=== PATIENT | female | born 1950 | race Caucasian/White ===

== ENCOUNTER 2019-05-20 19:50 | Inpatient (IN) | payer MEDICAID, MEDICARE ==
[~2019-05-20] VITALS: Ht 177.8 cm; Wt 88.9 kg
--- NOTE | 2019-05-20 19:52 | NUR ---
Patient to ER bed 07 to gown for evaluation. Side rails up.
--- NOTE | 2019-05-20 19:55 | NUR ---
Pt brought by ambulance, Alert x 2, pt presents to ER for PEG replacement, pt denies pain, VSS, respirations even and unlabored, cap refill <3.
--- NOTE | 2019-05-20 20:00 | NUR ---
Dr Ren at bedside examining patient
[2019-05-20 20:04] VITALS: BP_SYST 115
[2019-05-20] MEDS ORDERED: NACL 0.9% 1,000 ML IV ONE (20:15)
[2019-05-20 20:30] LABS: BASOPHILS # (AUTO) 0.1 K/uL (0.0-0.2); BASOPHILS % (AUTO) 0.6 % (0.0-2.0); EOSINOPHILS # (AUTO) 0.2 K/uL (0.0-0.4); HEMATOCRIT 25.8 % (36-48); HEMOGLOBIN 8.5 g/dL (12.0-16.0); LYMPHOCYTES % (AUTO) 20.8 % (20.5-51.5); MEAN CORPUSCULAR HEMOGLOBIN 27 pg (27-31); MEAN CORPUSCULAR HGB CONC 33 % (32-36); MEAN CORPUSCULAR VOLUME 83 fL (79.0-98.0); MONOCYTES # (AUTO) 0.6 K/uL (0.0-1.0); MONOCYTES % (AUTO) 6.1 % (1.7-9.3); NEUTROPHILS # (AUTO) 6.7 K/uL (1.8-7.7); NEUTROPHILS % (AUTO) 70.5 % (40.0-70.0); PLATELET COUNT (AUTO) 507 K/uL (130-430); WHITE BLOOD COUNT (AUTO) 9.5 K/uL (4.8-10.8)
[2019-05-20 20:35] LABS: CALCIUM 9.7 mg/dL (8.4-11.0); CREATININE 0.73 mg/dL (0.55-1.30); POTASSIUM 4.5 mmol/L (3.5-5.1)
[2019-05-20 20:40] LABS: ALBUMIN 2.1 g/dL (3.4-4.8); TOTAL BILIRUBIN 0.5 mg/dL (0.0-1.0)
[2019-05-20] MEDS ORDERED: ONDANSETRON HCL 4 MG/2 ML VIAL IVP PRN (20:45)
[2019-05-20] MEDS ORDERED: ACETAMINOPHEN 325 MG TABLET PO PRN (20:45)
[2019-05-20] MEDS ORDERED: TYLL650 GT (20:54)
[2019-05-20] MEDS ORDERED: ASCO500T20 PO (20:54)
[2019-05-20] MEDS ORDERED: ZINC220T4 GT (20:54)
[2019-05-20] MEDS ORDERED: MULT-976 GT (20:54)
[2019-05-20] MEDS ORDERED: DOCU-144 GT (20:54)
[2019-05-20] MEDS ORDERED: GLYC1TAB9 GT (20:54)
[2019-05-20] MEDS ORDERED: MIDO5TAB GT (20:54)
--- NOTE | 2019-05-20 20:54 | NUR ---
Medication reconciliation completed with information provided by patient . Any prior medication reconciliation on file was reviewed and corrected.
[2019-05-20 21:03] LABS: INR 1.1 (0.8-1.2); PROTHROMBIN TIME 10.7 SECS (9.5-12.5)
[2019-05-20 21:14] LABS: PHOSPHORUS 3.8 mg/dL (2.7-4.5); THYROID STIMULATING HORMONE 2.63 uIu/mL (0.36-3.74)
[2019-05-20 21:17] LABS: CHOLESTEROL 160 mg/dL (<200); HDL CHOLESTEROL 35 mg/dL (>55); LDL CHOLESTEROL 114 mg/dL (<100); TRIGLYCERIDES 75 mg/dL (30-150)
--- NOTE | 2019-05-20 22:07 | NUR ---
Patient will be admitted to care of Dr Shaw . Admitted to medsurg unit. Will go to room 123A . . Complete and up to date summary report printed. SBAR report to be given at bedside with opportunity for questions.
--- NOTE | 2019-05-20 22:07 | NUR ---
Note joseph in EDM - 05/20/19 at 2209 by [email or web address] Patient will be admitted to care of Dr Lugo . Admitted to medsur unit. Will go to room 123A . . Complete and up to date summary report printed. SBAR report to be given at bedside with opportunity for questions.
--- NOTE | 2019-05-20 22:28 | NUR ---
ADMIT FEMALE Patient awake alert verbally indicative , malfunction GT T BAR to Trach 02 3 LPM 02 sat 95 % chest movement shallow also symmetrical no use of accessory muscles procedures explained .
[2019-05-21] VITALS (7 sets, daily range): BP systolic 94–138
--- NOTE | 2019-05-21 00:10 | NUR ---
PHOTO PICTURE TAKEN OF SKIN TEAR OLD DRY SCAB ON RIGHT F/A .
[2019-05-21] MEDS: DOCUSATE SODIUM 100 MG CAPSULE PO SCH ×3 (00:40→21:00)
[2019-05-21] MEDS: NACL 0.9% 1,000 ML IV SCH ×3 (00:41→19:00)
[2019-05-21] MEDS: HEPARIN SODIUM,PORCINE 5000 UNITS/ML VIAL SUBCUT SCH ×3 (00:41→21:00)
--- NOTE | 2019-05-21 02:37 | NUR ---
WOUND CARE SACRAL WOUND BED 80 % PINK 20 % GUALLPA ALCIRA WOUND ERYTHEMA SCANT DRAINAGE FOUL ODER 7.0 CM X 6.0 CM X 3.5 CM .
--- NOTE | 2019-05-21 02:40 | NUR ---
PHOTO PICTURE TAKEN OF LARGE SACRAL WOUND & PUT IN MEDICAL Record / .
--- NOTE | 2019-05-21 03:35 | NUR ---
MRSA SCREEN OF NARES COLLECTED & SENT TO LAB .
[2019-05-21 06:33] LABS: CALCIUM 9.7 mg/dL (8.4-11.0); CREATININE 0.79 mg/dL (0.55-1.30); POTASSIUM 4.5 mmol/L (3.5-5.1)
--- NOTE | 2019-05-21 06:38 | NUR ---
Patient for GI consult per GI team d/t malfunction GT , DR ZAYRA BLAIR .
[2019-05-21 06:49] LABS: BASOPHILS % (AUTO) 0.4 % (0.0-2.0); EOSINOPHILS # (AUTO) 0.2 K/uL (0.0-0.4); EOSINOPHILS % (AUTO) 2.9 % (0.0-4.0); HEMATOCRIT 24.6 % (36-48); LYMPHOCYTES # (AUTO) 1.8 K/uL (1.0-5.5); LYMPHOCYTES % (AUTO) 24.2 % (20.5-51.5); MEAN CORPUSCULAR HEMOGLOBIN 28 pg (27-31); MEAN CORPUSCULAR HGB CONC 33 % (32-36); MEAN CORPUSCULAR VOLUME 84 fL (79.0-98.0); MONOCYTES # (AUTO) 0.5 K/uL (0.0-1.0); MONOCYTES % (AUTO) 6.6 % (1.7-9.3); NEUTROPHILS % (AUTO) 65.9 % (40.0-70.0); PLATELET COUNT (AUTO) 459 K/uL (130-430); RED BLOOD CELL COUNT(AUTO) 2.92 MIL/uL (4.2-6.2); RED CELL DISTRIBUTION WIDTH 18.1 % (9.0-15.0); WHITE BLOOD COUNT (AUTO) 7.5 K/uL (4.8-10.8)
--- NOTE | 2019-05-21 07:25 | NUR ---
CONSULTATION PAGED/CALLED Reason for Consultation: [] GT MALFUNCTION Person Who was Notified: [] SHRUTHI Consulting Physician: [] DR BROWN, DR IVERSON ROLL FORM OPERATOR Derrick Boat Leverman Specialty: [] GI Ordering Physician: [] DR VALDOVINOS
--- NOTE | 2019-05-21 08:00 | NUR ---
received awake and in no c/o discomfort.vss resp even and unlabored remains npo for gtube not working iv infusing at 100 hr.trach intact and 02 at 3lnc.continue to monitor for changes
--- NOTE | 2019-05-21 11:15 | NUR ---
CONSULTATION PAGED/CALLED Reason for Consultation: [] SACRAL ULCER DEBRIDEMENT Person Who was Notified: [] JANA Consulting Physician: [] DR Lisa YU Caramel Candy Maker Specialty: [] GEN SURGEON Ordering Physician: [] DR Kaci VALDOVINOS
--- NOTE | 2019-05-21 12:00 | NUR ---
resting and no c/o discomfort vss resp even and unlabored iv infusing at 100 hr repositioned in bed q2h.remains npo continue to monitor call ruiz in place
--- NOTE | 2019-05-21 17:48 | NUR ---
UNABLE TO CONTACT DENIAL RESOLUTION SPECIALIST FOR CONSENT UNABLE TO REACH THE EMERGENCY CONTACT VANE ALATORRE( DENIAL RESOLUTION SPECIALIST) TELEPHONE NUMBER WAS NOT RINGING, TRIED 5X. (TEL # [phone])
--- NOTE | 2019-05-21 18:08 | NUR ---
will endorse to retail shift supervisor unable to reach number for consent so they can try again or call dr.pt in no distress remains npo and iv infusing at 100 hr.turned and repositioned wound to sacral drsg cdi.call ruiz in place
--- NOTE | 2019-05-21 18:58 | NUR ---
REPORT TO LOAN EXAMINER TO BE GIVEN
--- NOTE | 2019-05-21 19:15 | NUR ---
change of shift.pt.presents quiescent affect;calm,somnolent.pt.presents t-bar;o2 administered@3l/min.pt.presents iv access :location;rt.hand.iv fluids infusing.pt.presents diet status:npo.pt.presents g-tube;malfunctioning.pt possible peg placement; 05/22/19. per .pt.presents wound; sacrum.pt.possible surgery pt:i&d per :05/22/19.call light/telephone w/in reach of the pt.
--- NOTE | 2019-05-21 20:00 | NUR ---
pt.assessed.v/s assessed.values w/in normal limits.no c/o pain,nausea.pt.assessed for cleanliness.pt.repositioned.iv access intact;patent iv fluids infusing.general status stable.respiratory status stable;unlabored:02-sat%=94%.t-bar intact;patent. call light/telephone placed w/in reach of the pt.
--- NOTE | 2019-05-21 21:00 | NUR ---
2100p medications held:pt presents npo diet status.i have held the administration heparin;5ku sq.pt possible surgery pt:05/22/19.
--- NOTE | 2019-05-21 22:00 | NUR ---
pt.assessed.pt.presents quiescent affect;calm,somnolent.pt.assessed for cleanliness.pt.repositioned.iv acces intact;patent;iv fluids infusing. general status stable.respiratory status stable;unlabored.call light/telephone placed w/in reach of the pt.
--- NOTE | 2019-05-22 | NUR ---
pt.assessed.v/s assessed;values w/in normal limits.no c/o pain,nausea.pt.assessed for cleanliness.pt repositioned.iv access intact.patent iv fluids infusing.general status stable.respiratory status stable;unlabored.o2-sat%=94%.call light/telephone placed w/in reach of the pt.
[2019-05-22] MEDS ORDERED: cefTRIAXone 1 GM IVPB PREMIX 50 ML IV SCH (01:00)
[2019-05-22] MEDS: D5NS 1,000 ML IV SCH ×3 (01:45→22:40)
--- NOTE | 2019-05-22 02:00 | NUR ---
pt.assessed.pt.assessed for cleanliness.pt.repositioned.pt.presents quiescent affect;calm,somnolent.no c/o pain,nausea. i have administered the iv fluids bag.i have administered the initial rocephin;abx;ivpb.iv access intact;patent.genera status stable.respiratory status stable;unlabored;02-sat%=94%.call light/telephone placed w/in reach of the pt.
[2019-05-22] MEDS ORDERED: cefTRIAXone 1 GM IVPB PREMIX 50 ML IV ONE (02:09)
--- NOTE | 2019-05-22 04:00 | NUR ---
pt.assessed.pt.assessed for cleanliness.pt.cleaned.pt.repositioned.general status stable.respiratory status stable;unlabored. iv acces intact;patent;iv fluids infusing.call light/telephone placed w/in reach of the pt.
[2019-05-22 05:58] VITALS: BP_SYST 104
--- NOTE | 2019-05-22 06:30 | NUR ---
pt.assessed.pt.assessed for cleanliness.pt.repositioned.iv access intact;patent;iv fluids infusing.i have administered the initial dose;vancomycin;abx;ivpb.call light/telephone placed w/in reach of the pt.
[2019-05-22 06:49] LABS: BASOPHILS % (AUTO) 0.5 % (0.0-2.0); EOSINOPHILS # (AUTO) 0.1 K/uL (0.0-0.4); LYMPHOCYTES # (AUTO) 1.7 K/uL (1.0-5.5); LYMPHOCYTES % (AUTO) 23.8 % (20.5-51.5); MEAN CORPUSCULAR HEMOGLOBIN 28 pg (27-31); MEAN CORPUSCULAR HGB CONC 32 % (32-36); MEAN CORPUSCULAR VOLUME 85 fL (79.0-98.0); MONOCYTES # (AUTO) 0.5 K/uL (0.0-1.0); MONOCYTES % (AUTO) 7.1 % (1.7-9.3); NEUTROPHILS # (AUTO) 4.8 K/uL (1.8-7.7); NEUTROPHILS % (AUTO) 66.6 % (40.0-70.0); PLATELET COUNT (AUTO) 445 K/uL (130-430); RED BLOOD CELL COUNT(AUTO) 2.72 MIL/uL (4.2-6.2); RED CELL DISTRIBUTION WIDTH 18.2 % (9.0-15.0); WHITE BLOOD COUNT (AUTO) 7.2 K/uL (4.8-10.8)
[2019-05-22 06:53] LABS: CALCIUM 9.2 mg/dL (8.4-11.0); CREATININE 0.76 mg/dL (0.55-1.30); POTASSIUM 3.9 mmol/L (3.5-5.1)
--- NOTE | 2019-05-22 06:57 | NUR ---
Nutrition Update Torey Scale 12 noted. Pt admitted for Displaced GT Diet: no diet order BMI: 28.2 kg/m2 RD to follow per nutrition care standards.
[2019-05-22] MEDS ORDERED: VANCOMYCIN HCL 1 GM/NS PREMIX 250 ML IV ONE (07:00)
--- NOTE | 2019-05-22 07:30 | NUR ---
GARRETT CATH: # 16 FR Garrett catheter inserted with use of sterile technique. Bulb inflated with 10 cc sterile water. Immediate return of cloudy/milky urine noted. Bedside drainage bag placed below level of bladder. Urine sample collected and sent to lab for urinalysis and urine culture. Secured with securement device. Patient tolerated procedure well.
[2019-05-22 07:31] LABS: HEMOGLOBIN 7.5 g/dL (12.0-16.0)
[2019-05-22 08:00] VITALS: BP_SYST 100
--- NOTE | 2019-05-22 08:00 | NUR ---
Note Pt resting in bed with IVF's infusing through right hand IV site which is patent and benign at this time. Pt has T-Bar trach oxygenating pt at this time with O2 at 4L. GT site was assessed by Dr Maldonado at bedside at this time as well. Pt kept NPO at this time. Call light within reach.
[2019-05-22] MEDS: DOCUSATE SODIUM 100 MG CAPSULE PO SCH ×2 (08:26→21:00)
[2019-05-22] MEDS: HEPARIN SODIUM,PORCINE 5000 UNITS/ML VIAL SUBCUT SCH ×2 (08:34→22:53)
[2019-05-22 09:04] LABS: BILIRUBIN,URINE NEGATIVE (NEGATIVE); BLOOD, URINE 3+ (NEGATIVE); CLARITY/URINE TURBID (CLEAR); COLOR,URINE YELLOW (YELLOW); GLUCOSE,URINE NEGATIVE (NEGATIVE); KETONES,URINE TRACE (NEGATIVE); LEUKOCYTE ESTERASE ,URINE 3+ (NEGATIVE); NITRITE, URINE POSITIVE (NEGATIVE); PH,URINE 8.5 (5.0-8.0); PROTEIN URINE 3+ (NEGATIVE); UROBILINOGEN,URINE 0.2 (0.2-1.0)
--- NOTE | 2019-05-22 09:25 | NUR ---
Note Dr Miranda at bedside doing assessment on pt. No needs noted. Pt next to nurses' station all shift for needs and care. Call light within reach.
--- NOTE | 2019-05-22 09:45 | NUR ---
Note Call made to Sarkis Aponte [phone] for consent of I&D of sacral decubitus and PEG placement. Number not connected. Dipak Bettencourt - community health worker called and was informed that social media campaign manager Sathish was in conference and would call us once she gets out of the meeting. Waiting for call back.
[2019-05-22 09:54] LABS: BACTERIA,URINE FEW /HPF (None Seen); MUCUS,URINE 1+ /LPF (None Seen); RBC,URINE 50-80 /HPF (0-3); WBC,URINE >100 /HPF (0-3)
--- NOTE | 2019-05-22 10:30 | NUR ---
Note Lab called and stated pt's MRSA specimen was positive at this time. automobile sales consultant notified. Pt having US Renal at bedside at this time. No needs noted. Call light within reach.
--- NOTE | 2019-05-22 11:43 | NUR ---
Dietitian Recommendations *Once GT is replaced and ready to use, recommend: Vital AF 1.2 at 65ml/hr, Tab BID, Free Water Flush 150ml Q6H via GT. Provides: 2032 kcal, 122gm protein and 1865ml free water daily. Meets: 100% of lower end of est calorie needs and 90% of upper end of est protein needs. *Continue MVI for wound healing. Please see Nutritional Assessment for details. AURE, RD
[2019-05-22 12:35] VITALS: BP_SYST 114
--- NOTE | 2019-05-22 14:05 | NUR ---
Note Pt resting in bed at this time. Denies any needs. IVF's infusing well.
--- NOTE | 2019-05-22 15:15 | NUR ---
Note Called Dipak Bettencourt and spoke to Ellen - social research assistant about message left this morning for her at 0945am. Ellen stated she got no message and her molding utility worker might have received the message, she will check with the Director and call me back shortly.
--- NOTE | 2019-05-22 15:30 | NUR ---
Note hotel front office manager was at bedside with RN and assessment of sacral wound done at this time. Pt denies any needs. Call light wihtin reach.
--- NOTE | 2019-05-22 15:30 | NUR ---
WOUND EVALUATION: Wound Consult received from Dr. Shaw. Thank you, Dr. Shaw, for the consult. Patient received in a Kirsten Bed with an Isoflex THOM mattress, awake, alert, and oriented. Patient is unable to turn independently. Torey Score is a 12. Past Medical History: Hypertension, COPD, Obesity, Laryngeal Cancer, Dysphagia, status post Tracheostomy, PEG placement. Recent Labs: WBC 7.2, RBC 2.72, hemoglobin 7.5, hematocrit 23.0, BUN 25, creatinine 0.76, GFR 81, BNP 162, albumin 2.1, PTT 25.3. Microbiology: MRSA screen results positive. Urine culture results in progress. Intrinsic factors that delay wound healing: COPD, Laryngeal Cancer, Dysphagia, Hypoalbuminemia. Extrinsic factors that delay wound healing: Decreased mobility. When turning patient for skin assessment, blanchable red erythema noted on left lateral hip. Attempted to position patient to offload the left hip or at least place pillows, but the patient refused. Tried to explain the reasoning for offloading the area especially since patient already has a Sacral pressure ulcer, but the patient still refused. Wound Assessment: 1. Sacral area: Stage IV pressure ulcer, present on admission. Wound bed has 85% yellow slough, 15% pink tissue. Foul odor, small yellow purulent drainage. Wound measures 7.4 cm by 5.5 cm x 4.7 cm. Undermining present: 12 o'clock: 2.0 cm; 3 o'clock: 2.3 cm; 5 o'clock: 2.5 cm; 6 o'clock: 1.5 cm; 9 o'clock: 2.0 cm. Bone is palpable. 2. Left lateral hip: Left lateral hip including greater trochanter area has blanchable red erythema. Patient was lying on left hip when wound care staff entered the room. Tried to offload involved area or at least place a pillow underneath it and patient refused. Recommend: Cleanse wound with normal saline. Apply moisture barrier cream to millicent-wound. Apply Venelex ointment to wound bed. Pack wound with 2.2 inch tender wet dressings. Cover with Sacral foam dressing. Perform wound care daily, and as needed for dressing soiling or dislodgement. Also recommend: Encourage and reposition patient [id number] only every 2 hours with pillow support and off-load pressure areas with pillows for pressure re-distribution. Offload, elevate and float bilateral heels with one pillow lengthwise under each extremity at all times. Perform skin care and monitor skin integrity Q shift. Use moisture barrier cream on buttocks and other moisture susceptible areas QID and as needed for soiling. Initiate low air-loss therapy. Recommend surgical consult. Dr. Beckman is on consult.
--- NOTE | 2019-05-22 16:00 | NUR ---
Note Able to get hold of Sarkis Aponte [phone]. Left message, waiting for call back.
[2019-05-22 16:41] VITALS: BP_SYST 98
--- NOTE | 2019-05-22 18:25 | NUR ---
Note Attempts to contact family worker in Dipak Bettencourt and Sarkis Aponte were unsuccessful all shift. No call backs received all shift. Pt was checked on q1' and PRN all shift for needs and care. Pt maintained with isolation precautions all shift for MRSA in nares. No SOB/resp distress or pain/discomfort was noted at this time. IV in right hand intact and patent infusing IVF's well at this time. Call light within reach. Pt next to nurses' station all shift for needs and care. Call light within reach.
--- NOTE | 2019-05-22 19:30 | NUR ---
OPENING NOTES Received patient resting in bed, Oxygen through Tbar, 4 L, no signs of acute respiratory distress observed. IVF running, dressings c/d/i. Call light within reach, bed alarm on , bed at lowest position, will continue to monitor.
[2019-05-22 20:00] VITALS: BP_SYST 103
[2019-05-22] MEDS: cefTRIAXone 1 GM in D5W 50 ML IV SCH (22:39)
[2019-05-22] MEDS: BALSAM PERU/CASTOR OIL 60 GM OINT...G. TP SCH (22:55)
[2019-05-23 02:04] VITALS: BP_SYST 111
[2019-05-23 06:19] LABS: BASOPHILS % (AUTO) 0.3 % (0.0-2.0); EOSINOPHILS # (AUTO) 0.1 K/uL (0.0-0.4); EOSINOPHILS % (AUTO) 1.1 % (0.0-4.0); LYMPHOCYTES # (AUTO) 1.3 K/uL (1.0-5.5); LYMPHOCYTES % (AUTO) 23.2 % (20.5-51.5); MEAN CORPUSCULAR HEMOGLOBIN 27 pg (27-31); MEAN CORPUSCULAR HGB CONC 32 % (32-36); MEAN CORPUSCULAR VOLUME 85 fL (79.0-98.0); MONOCYTES # (AUTO) 0.4 K/uL (0.0-1.0); NEUTROPHILS # (AUTO) 3.8 K/uL (1.8-7.7); NEUTROPHILS % (AUTO) 68.4 % (40.0-70.0); PLATELET COUNT (AUTO) 404 K/uL (130-430); RED BLOOD CELL COUNT(AUTO) 2.58 MIL/uL (4.2-6.2); RED CELL DISTRIBUTION WIDTH 18.2 % (9.0-15.0); WHITE BLOOD COUNT (AUTO) 5.5 K/uL (4.8-10.8)
[2019-05-23 06:34] LABS: CREATININE 0.61 mg/dL (0.55-1.30); POTASSIUM 3.7 mmol/L (3.5-5.1)
--- NOTE | 2019-05-23 07:00 | NUR ---
CLOSING NOTES patient is resting, no signs of acute respiratory distress observed, tbar in place, 4 l. Patient continues to need reorientation, as patient still wants to drink water. wound care performed. all needs met throughout shift. call light within reach, bed alarm on, bed at lowest position. will endorse care to oncoming shift.
[2019-05-23 07:10] LABS: HEMATOCRIT 21.8 % (36-48)
--- NOTE | 2019-05-23 07:22 | NUR ---
MD ROUNDS: DR. BROWN MAKING HIS ROUNDS. AWARE OF PATIENT'S CONDITION. WILL ATTEMPT TO CONTACT CONSERVATOR TO GET CONSENT FOR PEG PLACEMENT.
--- NOTE | 2019-05-23 07:30 | NUR ---
OPENING NOTES: RECEIVED PATIENT FROM WORLD HISTORY TEACHER NURSE. PATIENT IS AWAKE AND ALERT x1 LAYING DOWN IN BED. PATIENT IS TOLERATING OXYGEN ON T-BAR AT 4L WITH NO SIGNS OF DISTRESS OR SHORTNESS OF BREATH NOTED. IV SITE IS PATENT WITH NO SIGNS OF INFILTRATION NOTED. PATIENT IN STABLE CONDITION. SAFETY, FALL, ASPIRATION AND CONTACT PRECAUTIONS ARE IN PLACE. BED IS LOCKED IN LOWEST POSITION WITH CALL LIGHT IN REACH. WILL CONTINUE TO MONITOR PATIENT FOR ANY CHANGES. Addendum: 05/23/19 at 1334 by Leida Aponte RN GARRETT CATHETER INTACT AND DRAINING BY GRAVITY.
--- NOTE | 2019-05-23 08:15 | NUR ---
CONSENT: CHARGE NURSE GOT A HOLD OF CONSERVATOR FOR CONSENT FOR EGD PLACEMENT AND DEBRIDEMENT. CONSERVATOR WANTS TO SPEAK WITH THE DOCTOR. DR. BROWN PAGED. AWAITING CALL BACK.
[2019-05-23 08:26] VITALS: BP_SYST 130
--- NOTE | 2019-05-23 08:30 | NUR ---
MD ROUNDS: DR. ROSADO MAKING HIS ROUNDS. AWARE OF PATIENT'S CONDITION. NO NEW ORDERS GIVEN.
--- NOTE | 2019-05-23 08:30 | NUR ---
CALLED: DR. BROWN CALLED BACK. WAS GIVEN THE [employer] PHONE NUMBER TO CALL AND SPEAK WITH HIM ABOUT THE PROCEDURE.
[2019-05-23] MEDS: DOCUSATE SODIUM 100 MG CAPSULE PO SCH ×2 (09:00→21:02)
[2019-05-23] MEDS: BALSAM PERU/CASTOR OIL 60 GM OINT...G. TP SCH (10:00)
[2019-05-23] MEDS: HEPARIN SODIUM,PORCINE 5000 UNITS/ML VIAL SUBCUT SCH ×2 (10:02→21:05)
[2019-05-23] MEDS: D5NS 1,000 ML IV SCH ×2 (10:05→17:45)
--- NOTE | 2019-05-23 10:10 | NUR ---
RN ROUNDS: PATIENT IS AWAKE AND ALERT x1 LAYING DOWN IN BED. PATIENT DENIES ANY PAIN AT THE MOMENT. NO SIGNS OF DISTRESS OR SHORTNESS OF BREATH NOTED. PATIENT IN STABLE CONDITION. WILL CONTINUE TO MONITOR PATIENT FOR ANY CHANGES.
[2019-05-23 12:01] VITALS: BP_SYST 107
--- NOTE | 2019-05-23 12:15 | NUR ---
RN ROUNDS: PATIENT IS ASLEEP LAYING DOWN IN BED. NO SIGNS OF DISTRESS OR SHORTNESS OF BREATH NOTED. PATIENT IN STABLE CONDITION. WILL CONTINUE TO MONITOR PATIENT FOR ANY CHANGES.
--- NOTE | 2019-05-23 14:15 | NUR ---
RN ROUNDS: PATIENT IS AWAKE AND ALERT X1 IN BED WITH HER EYES OPEN. NO SIGNS OF DISTRESS OR SHORTNESS OF BREATH NOTED. PATIENT DENIES ANY PAIN AT THE MOMENT. IV SITE IS PATENT WITH NO SIGNS OF INFILTRATION NOTED. PATIENT IN STABLE CONDITION. WILL CONTINUE TO MONITOR PATIENT FOR ANY CHANGES.
--- NOTE | 2019-05-23 16:25 | NUR ---
RN ROUNDS: PATIENT IS ASLEEP IN BED. NO SIGNS OF DISTRESS OR SHORTNESS OF BREATH NOTED. PATIENT TOLERATING OXYGEN ON 4L BY T-BAR. PATIENT DENIES ANY PAIN AT THE MOMENT. PATIENT IN STABLE CONDITION. WILL CONTINUE TO MONITOR PATIENT FOR ANY CHANGES.
[2019-05-23 16:45] LABS: TOTAL IRON BIND. CAPACITY 131 ug/dL (250-450)
[2019-05-23 17:19] VITALS: BP_SYST 114
[2019-05-23 17:29] LABS: BASOPHILS % (AUTO) 0.3 % (0.0-2.0); EOSINOPHILS # (AUTO) 0.1 K/uL (0.0-0.4); EOSINOPHILS % (AUTO) 0.9 % (0.0-4.0); HEMOGLOBIN 7.4 g/dL (12.0-16.0); LYMPHOCYTES # (AUTO) 1.4 K/uL (1.0-5.5); LYMPHOCYTES % (AUTO) 23.1 % (20.5-51.5); MEAN CORPUSCULAR HEMOGLOBIN 27 pg (27-31); MEAN CORPUSCULAR HGB CONC 32 % (32-36); MEAN CORPUSCULAR VOLUME 85 fL (79.0-98.0); MONOCYTES # (AUTO) 0.4 K/uL (0.0-1.0); MONOCYTES % (AUTO) 6.7 % (1.7-9.3); NEUTROPHILS # (AUTO) 4.1 K/uL (1.8-7.7); PLATELET COUNT (AUTO) 389 K/uL (130-430); RED BLOOD CELL COUNT(AUTO) 2.71 MIL/uL (4.2-6.2); RED CELL DISTRIBUTION WIDTH 18.4 % (9.0-15.0); WHITE BLOOD COUNT (AUTO) 5.9 K/uL (4.8-10.8)
--- NOTE | 2019-05-23 18:50 | NUR ---
CLOSING NOTES: PATIENT IS AWAKE AND ALERT x1 LAYING DOWN IN BED. PATIENT IS TOLERATING OXYGEN ON T-BAR AT 4L WITH NO SIGNS OF DISTRESS OR SHORTNESS OF BREATH NOTED. IV SITE IS PATENT WITH NO SIGNS OF INFILTRATION NOTED. GARRETT CATHETER INTACT AND DRAINING BY GRAVITY. PATIENT IN STABLE CONDITION. SAFETY, FALL, ASPIRATION AND CONTACT PRECAUTIONS REMAINED IN PLACE THROUGHOUT THE SHIFT. BED IS LOCKED IN LOWEST POSITION WITH CALL LIGHT IN REACH. WILL ENDORSE PATIENT CARE TO ONCOMING TURBINE ASSEMBLER NURSE.
[2019-05-23 20:00] VITALS: BP_SYST 117
[2019-05-23] MEDS: cefTRIAXone 1 GM in D5W 50 ML IV SCH (22:01)
[2019-05-24 01:42] VITALS: BP_SYST 118
--- NOTE | 2019-05-24 06:00 | NUR ---
PATIENT TURNED REPOSITIONED Q2. NO ACUTE DISTRESS NOTED. IV SITE REPLACED BY A 22 TO THE RAC. WILL CONTINUE TO MONITOR.
[2019-05-24] MEDS ORDERED: VANCOMYCIN HCL 1 GM/NS PREMIX 250 ML IV ONE (06:30)
[2019-05-24] MEDS ORDERED: fentaNYL CITRATE/PF 100 MCG/2 ML AMP ONE (06:34)
[2019-05-24] MEDS ORDERED: MIDAZOLAM HCL 5 MG/5 ML VIAL ONE (06:34)
--- NOTE | 2019-05-24 07:30 | NUR ---
OPENING NOTES: RECEIVED PATIENT FROM KINDERGARTEN ASSISTANT NURSE. PATIENT IS AWAKE AND ALERT x1 LAYING DOWN IN BED. PATIENT IS TOLERATING OXYGEN ON T-BAR AT 4L WITH NO SIGNS OF DISTRESS OR SHORTNESS OF BREATH NOTED. IV SITE IS PATENT WITH NO SIGNS OF INFILTRATION NOTED. GARRETT CATHETER INTACT AND DRAINING BY GRAVITY. PATIENT IN STABLE CONDITION. SAFETY, FALL, ASPIRATION AND CONTACT PRECAUTIONS ARE IN PLACE. BED IS LOCKED IN LOWEST POSITION WITH CALL LIGHT IN REACH. WILL CONTINUE TO MONITOR PATIENT FOR ANY CHANGES.
[2019-05-24 08:00] VITALS: BP_SYST 122
[2019-05-24] MEDS: D5NS 1,000 ML IV SCH ×2 (08:03→18:48)
[2019-05-24] MEDS: DOCUSATE SODIUM 100 MG CAPSULE PO SCH ×2 (09:00→22:14)
[2019-05-24 09:17] LABS: INR 1.2 (0.8-1.2); PROTHROMBIN TIME 12.4 SECS (9.5-12.5)
[2019-05-24 09:19] LABS: BASOPHILS % (AUTO) 0.4 % (0.0-2.0); CALCIUM 8.7 mg/dL (8.4-11.0); CREATININE 0.59 mg/dL (0.55-1.30); EOSINOPHILS % (AUTO) 0.7 % (0.0-4.0); HEMATOCRIT 22.2 % (36-48); LYMPHOCYTES # (AUTO) 1.4 K/uL (1.0-5.5); LYMPHOCYTES % (AUTO) 21.2 % (20.5-51.5); MEAN CORPUSCULAR HEMOGLOBIN 27 pg (27-31); MEAN CORPUSCULAR HGB CONC 32 % (32-36); MEAN CORPUSCULAR VOLUME 85 fL (79.0-98.0); MONOCYTES # (AUTO) 0.4 K/uL (0.0-1.0); MONOCYTES % (AUTO) 5.8 % (1.7-9.3); NEUTROPHILS # (AUTO) 4.8 K/uL (1.8-7.7); NEUTROPHILS % (AUTO) 71.9 % (40.0-70.0); PLATELET COUNT (AUTO) 372 K/uL (130-430); POTASSIUM 3.6 mmol/L (3.5-5.1); RED BLOOD CELL COUNT(AUTO) 2.62 MIL/uL (4.2-6.2); RED CELL DISTRIBUTION WIDTH 18.5 % (9.0-15.0); WHITE BLOOD COUNT (AUTO) 6.7 K/uL (4.8-10.8)
--- NOTE | 2019-05-24 10:00 | NUR ---
RN ROUNDS: PATIENT IS AWAKE AND ALERT x2 LAYING DOWN IN BED. PATIENT DENIES ANY PAIN AT THE MOMENT. NO SIGNS OF DISTRESS OR SHORTNESS OF BREATH NOTED. PATIENT IN STABLE CONDITION. WILL CONTINUE TO MONITOR PATIENT FOR ANY CHANGES.
[2019-05-24 10:10] LABS: FOLATE (FOLIC ACID) >20.0 ng/mL (>3.0)
[2019-05-24] MEDS: BALSAM PERU/CASTOR OIL 60 GM OINT...G. TP SCH (10:33)
[2019-05-24] MEDS: HEPARIN SODIUM,PORCINE 5000 UNITS/ML VIAL SUBCUT SCH ×2 (10:33→22:13)
--- NOTE | 2019-05-24 12:10 | NUR ---
CALLED CONSERVATOR: CALLED VANE ALATORRE TO GET CONSENT FOR BLOOD TRANSFUSION. LEFT A MESSAGE. AWAITING CALL BACK.
--- NOTE | 2019-05-24 12:15 | NUR ---
RN ROUNDS: PATIENT IS ASLEEP IN BED. NO SIGNS OF DISTRESS OR SHORTNESS OF BREATH NOTED. PATIENT IN STABLE CONDITION. WILL CONTINUE TO MONITOR PATIENT FOR ANY CHANGES.
--- NOTE | 2019-05-24 13:00 | NUR ---
MARGE MARNI: SPOKE WITH MATILDA FROM [facility] REGARDING AN UPDATE ON PATIENT. INFORMED HIM THAT THEY WERE UNSUCCESSFUL IN REPLACING THE PEG TUBE. INFORMED HIM THAT DR. ROSADO WANTS TO DISCHARGE HER BACK TO [facility] WITH AN NG TUBE FOR A COUPLE WEEKS BEFORE REATTEMPTING TO INSERT A PEG TUBE. HE INFORMED ME THAT AT [facility] THEY DO NOT ACCEPT PATIENT'S WITH NG TUBES. WILL NOTIFY MD AND RETAIL BRANCH MANAGER.
--- NOTE | 2019-05-24 13:32 | NUR ---
DC Planning: Per MARK Casarez: Dr Calderon wants to discharge pt back to [facility] but the discharge is pendin unit PRBC transfusion for Hgb 7.0, Hct 22.2 and pending I and D by dr. Beckman ( no schedule yet). The pt is to have NGT with Jevity formula feeding. The pt can not return to [facility] at this time due to being on NGT and the above barriers.
--- NOTE | 2019-05-24 15:20 | NUR ---
CALLED CONSERVATOR: CALLED VANE ALATORRE TO ATTEMPT TO GET CONSENT FOR BLOOD TRANSFUSION. NO ANSWER. LEFT MESSAGE FOR HIM TO CALL US BACK. AWAITING PHONE CALL.
[2019-05-24 15:43] LABS: FERRITIN 600; HEMOGLOBIN A1C 6.3 % (4.8-5.6)
--- NOTE | 2019-05-24 16:51 | NUR ---
1600 trach care done. pt tolerating. Addendum: 05/24/19 at 1652 by Michelle Winchester RT Amended: Links added.
--- NOTE | 2019-05-24 16:55 | NUR ---
0900 stby for peg insertion. [id number]. o2 increased to 9l. Sat97%. post procedure titrated o2 to 4l. pt tolerated well.
[2019-05-24 16:57] VITALS: BP_SYST 138
--- NOTE | 2019-05-24 17:11 | NUR ---
Spoke with Dr. Calderon/Master Scheduler regarding DC orders, patient still pending 1 unit PRBC's, primary RN, Leida, called and left messages for the conservator, no response yet. Also, Dr. Maldonado ordered for NGT placement, however, [facility], will not accept the patient with NGT. Master Scheduler Sapphire present for phone call. Dr. Calderon ordered for patient to be transferred under care of Dr. Bailey Brownlee.
--- NOTE | 2019-05-24 18:45 | NUR ---
CLOSING NOTES: PATIENT IS ASLEEP LAYING DOWN IN BED. PATIENT IS TOLERATING OXYGEN ON T-BAR AT 4L WITH NO SIGNS OF DISTRESS OR SHORTNESS OF BREATH NOTED. IV SITE IS PATENT WITH NO SIGNS OF INFILTRATION NOTED. GARRETT CATHETER INTACT AND DRAINING BY GRAVITY. PATIENT IN STABLE CONDITION. SAFETY, FALL, ASPIRATION AND CONTACT PRECAUTIONS REMAINED IN PLACE THROUGHOUT THE SHIFT. BED IS LOCKED IN LOWEST POSITION WITH CALL LIGHT IN REACH. WILL ENDORSE PATIENT CARE TO ONCOMING CERTIFIED PEST CONTROL TECHNICIAN NURSE.
[2019-05-24 20:00] VITALS: BP_SYST 122
--- NOTE | 2019-05-24 20:00 | NUR ---
RECIEVED REPORT @ START OF SHIFT, A/O/X./2 WITH CONFUSION, RESPIRATIONS EVEN AND UNLABORED, T-BAR WITH O2 @ 3L/M, HOB ELEVATED, GARRETT CATHETER DRAINING CLEAR YELLOW URINE,D5NS INFUSING IN LEFT WRIST @ 0 ML/HR, S/L PATENT INTACT IN RIGHT WRIST #22G, NPO,, SDC'S IN PLACE ON [place]. LOWER EXTREMITIES,HAS SACRAL WOUND, BRUISING NOTED ON LEFT HIP, SCAB ON LEFT FOREARM AND WITH SCAB, DENIES PAIN,, TURNED AND RRPOSITIONED Q 2 HRS, WILL CONTINUE TO MONITOR, dURING IRREGULAR INTERVALS PATIENT WILL ASK FOR A DRINK OF WATER.
[2019-05-24] MEDS: cefTRIAXone 1 GM in D5W 50 ML IV SCH (22:08)
[2019-05-25] VITALS (7 sets, daily range): BP systolic 110–133
--- NOTE | 2019-05-25 | NUR ---
PICTURE TAKEN OF SACRAL WOUND AND CLEAN DRY DRESSING RE-APPLIED.. UNABLE TO RE-INSERT NGT DUE TO PATIENT'S REFUSAL TO ALLOW CREDIT OPERATIONS SPECIALIST TO INSERT, EXPLAINED THE DO'S AND DON'TS FOR THE REASON SHE NEEDED NG-TUBE INSERTION ,PATIENT STILL REFUSED, PATIENT REMAINS NPO. F/C DRAINING CLEAR YELLOW URINE, TURNED AND REPOSITIONED FOR COMFORT, SR'S UP X'S 3,CALL LIGHT WITHIN REACH, BED IN LOW POSITION., WILL CONTINUE TO MONITOR, SITTER @ BEDSIDE.
--- NOTE | 2019-05-25 05:00 | NUR ---
CONTINUES TO REST QUIETLY IN BED WITH EYES CLOSED, EASILY AROUSED, F/C DRAINING CLEAR YELLOW URINE, IVF INFUSING @ 50ML/HR, TBAR O2 FLOW @ 4L/M, IN NO ACUTE RESPIRTORY DISTRESS, WILL CONTINUE TO MONITOR.
[2019-05-25] MEDS: D5NS 1,000 ML IV SCH (05:02)
--- NOTE | 2019-05-25 05:07 | NUR ---
PATIENT AWAKE AND MOVING ABOUT IN BED, TALKING TO SELF, CONFUSED,IVF INFUSING IN LEFT HAND @ 0 ML/HR, CONTINUES TO SCRATCH ALL OVER , WILL CONTINUE TO MONITOR Addendum: 05/25/19 at 0511 by [employer] tar distributor operator CHARTED WRONG DATA ON PATIENT'S CHART, PLEASE DISREGARD ABOVE NOTE.
--- NOTE | 2019-05-25 06:36 | NUR ---
CLOSING NOTE: PATIENT RESTING QUIETLY IN BED WITH EYES CLOSED, EASILY AROUSED,T-BAR WITH 4 L/M ,RESPIRATIONS EVEN AND UNLABORED HOB ELEVATED 40 DEGREES, DENIES PAIN, SACRAL DRSG REMAINS C/D/I, F/C DRAINING CLEAR YELLOW URINE, ABLE TO TURN HELP REPOSITION SELF NEEDED, LBM 05/25/19, WILL CONTINUE TO MONITOR, SR'S UP X'S 3, CALL LIGHT WITHIN REACH, BED IN LOW POSITION AND PATIENT REMAINS NPO, CONTINUES TO REFUSE TO ALLOW GAUGER CHIEF DELIVERY TO INSERT NGT, WILL ENDORSE TO ON COMING NURSE.
[2019-05-25 07:28] LABS: BASOPHILS % (AUTO) 0.4 % (0.0-2.0); EOSINOPHILS % (AUTO) 0.4 % (0.0-4.0); LYMPHOCYTES # (AUTO) 1.5 K/uL (1.0-5.5); LYMPHOCYTES % (AUTO) 27.1 % (20.5-51.5); MEAN CORPUSCULAR HEMOGLOBIN 27 pg (27-31); MEAN CORPUSCULAR HGB CONC 31 % (32-36); MEAN CORPUSCULAR VOLUME 85 fL (79.0-98.0); MONOCYTES # (AUTO) 0.3 K/uL (0.0-1.0); MONOCYTES % (AUTO) 5.7 % (1.7-9.3); NEUTROPHILS # (AUTO) 3.6 K/uL (1.8-7.7); NEUTROPHILS % (AUTO) 66.4 % (40.0-70.0); PLATELET COUNT (AUTO) 336 K/uL (130-430); RED BLOOD CELL COUNT(AUTO) 2.57 MIL/uL (4.2-6.2); RED CELL DISTRIBUTION WIDTH 18.1 % (9.0-15.0); WHITE BLOOD COUNT (AUTO) 5.4 K/uL (4.8-10.8)
[2019-05-25 07:48] LABS: CALCIUM 8.8 mg/dL (8.4-11.0); CREATININE 0.52 mg/dL (0.55-1.30); POTASSIUM 3.7 mmol/L (3.5-5.1)
--- NOTE | 2019-05-25 08:00 | NUR ---
received awake and oriented and no c/o pain.vss.trach and tbar intact and 02 at 4lnc and no resp distress noted.npo.valdovinos cath patent and draining clear urine.iv infusing at 70 hr.to receive blood transfusion but awaiting conservator for consent. sacral wound with drsg cdi.continue to monitor
[2019-05-25 08:45] LABS: HEMATOCRIT 21.9 % (36-48); HEMOGLOBIN 6.8 g/dL (12.0-16.0)
[2019-05-25] MEDS: BALSAM PERU/CASTOR OIL 60 GM OINT...G. TP SCH (09:00)
[2019-05-25] MEDS: DOCUSATE SODIUM 100 MG CAPSULE PO SCH ×2 (09:00→21:00)
[2019-05-25] MEDS: HEPARIN SODIUM,PORCINE 5000 UNITS/ML VIAL SUBCUT SCH ×2 (09:00→21:40)
--- NOTE | 2019-05-25 10:43 | NUR ---
BLOOD TRANSFUSION CONSENT LEFT MESSAGE TO CONSERVATOR VANE ALATORRE FOR BLOOD TRANSFUSION CONSENT, LEFT MESSAGE 2X, AWAITING TO CALL BACK.
--- NOTE | 2019-05-25 11:39 | NUR ---
FOLLOW UP BLOOD TRANSFUSION CONSENT STILL CONSERVATOR NOT AVAILABLE, AWAITING TO CALL BACK.
--- NOTE | 2019-05-25 14:00 | NUR ---
lucilaator called and still unable to reach for blood consent message left will try again later and also page for further orders
--- NOTE | 2019-05-25 16:35 | NUR ---
Nutrition F/U RD reviewed pt's current EMR record including diet Hx, physician notes, nursing notes, pertinent labs/meds/procedures, care trends, and care activity. Admission Dx: Displaced GT PMH: non-functioning GT, chronic respiratory failure, dysphagia, sacral ulcer, HTN, muscle weakness, laryngeal CA, COPD, anemia, hyponatremia, dyslipidemia per physician notes Current Diet Order/Nutrition Support: NPO x1 day Subjective Info: Pt was seen resting in bed at time of RD visit. Pt noted as alert but confused/disoriented. Per EMR, plans for PPN/TPN d/t pt's refusal of NGT insertion, and need for GT site to heal/inflammation before GT insertion. Awaiting conservator response for PICC line placement per RN report. Pt continues at risk for malnutrition and also has increased nutrition needs for wound healing. Estimated Energy Expenditure (kcals/day) 0262-9572 kcal/day (30-35 kcal/kg IBW for wound healing) Estimated Protein Required (g/day) 102-136 gm/day (1.5-2gm/kg IBW for wound healing ) Estimated Fluid Required (l/day) 2L/day (30ml/kg IBW for wound healing) Problem/Etiology/Signs/Symptoms Increased protein-calorie needs r/t metabolic demands AEB presence of decubitus ulcer and low Torey score. *ongoing Expected Outcomes/Goals Monitor provision of EN support w/ goal of pt meeting at least 75% of estimated nutritional needs, labs trending WNL, normal GI function, skin integrity/wt maintenance. Dietitian Recommendations * Once EN support is indicated, consider Vital AF 1.2 at 65 ml/hr, Tab BID, Free Water Flush: 150 ml Q6H Provides: 2032 kcal/day, 122 gm protein/day and 1865 ml free water/day Meets: 100% of lower end of estimated caloric needs and 90% of upper end of estimated protein needs * Continue MVI for wound healing * Consider PPN D20%, AA10% at 90 ml/hr (goal rate), IL20% at 10 ml/hr daily via peripheral line Provides: 1646 kcal/day, 108 gm protein/day, 2400 ml total volume/day, and GIR: 1.7 gm CHO/kg/mine Meets: 81% of lower end of estimated caloric needs and 106% of lower end of estimated protein needs Follow Up High Risk: F/U in 2-3 days
--- NOTE | 2019-05-25 16:45 | NUR ---
UNABLE TO CONTACT THE CONSERVATOR' LEFT MESSAGE TO CONSERVATOR, AWAITING TO CALL BACK FOR CONSENT.
--- NOTE | 2019-05-25 16:45 | NUR ---
Dietitian Recommendations * Once EN support is indicated, consider Vital AF 1.2 at 65 ml/hr, Tab BID, Free Water Flush: 150 ml Q6H Provides: 2032 kcal/day, 122 gm protein/day and 1865 ml free water/day Meets: 100% of lower end of estimated caloric needs and 90% of upper end of estimated protein needs * Continue MVI for wound healing * Consider PPN D20%, AA10% at 90 ml/hr (goal rate), IL20% at 10 ml/hr daily via peripheral line Provides: 1646 kcal/day, 108 gm protein/day, 2400 ml total volume/day, and GIR: 1.7 gm CHO/kg/mine Meets: 81% of lower end of estimated caloric needs and 106% of lower end of estimated protein needs LP, RD Please refer to Nutrition F/U for details.
--- NOTE | 2019-05-25 16:58 | NUR ---
SPOKE TO DR DUFFY SPOKE TO DR DUFFY AND MADE AWARE THAT PATIENT WAS TRANSFERRED UNDER HIS CARE. MD WAS AWARE THAT CONSERVATOR WAS NOT CALLING BACK AFTER SEVERAL CALLS MADE TO HIM TO GET A BLOOD TRANSFUSION CONSENT. PATIENT NEEDS 1 UNIT PRBC FOR LOW HEMOGLOBIN AND HEMATOCRIT. HE IS ALSO AWARE ABOUT THE DELAY OF GTUBE INSERTION AND NGT WAS NOT ABLE TO INSERT BECAUSE PATIENT REFUSED. PPN HAS ORDERED, PICCLINE TO INSERT ONCE CONSERVATOR CALL BACK.
[2019-05-25] MEDS ORDERED: DEXTROSE 50% JECT 50 ML DISP.SYRIN IVP PRN (17:00)
[2019-05-25] MEDS ORDERED: EPOETIN ALFA 10,000 UNITS/ML VIAL SUBCUT ONE (17:00)
[2019-05-25] MEDS ORDERED: *PPN PER PHARMACY XX PRN (17:00)
--- NOTE | 2019-05-25 17:30 | NUR ---
refused accucheck at this time explained reason and benefits but refusesd.reassess later
[2019-05-25] MEDS: SOD FERRIC GLUC COMPLEX/SUC 125 MG in NS 100 ML IV SCH (18:10)
[2019-05-25] MEDS: cefTRIAXone 1 GM in D5W 50 ML IV SCH (21:37)
[2019-05-26] MEDS: D5NS 1,000 ML IV SCH ×3 (02:57→21:00)
[2019-05-26 07:53] LABS: BASOPHILS % (AUTO) 0.5 % (0.0-2.0); EOSINOPHILS % (AUTO) 0.4 % (0.0-4.0); LYMPHOCYTES # (AUTO) 1.5 K/uL (1.0-5.5); LYMPHOCYTES % (AUTO) 23.6 % (20.5-51.5); MEAN CORPUSCULAR HEMOGLOBIN 27 pg (27-31); MEAN CORPUSCULAR HGB CONC 32 % (32-36); MEAN CORPUSCULAR VOLUME 85 fL (79.0-98.0); MONOCYTES # (AUTO) 0.4 K/uL (0.0-1.0); MONOCYTES % (AUTO) 5.9 % (1.7-9.3); NEUTROPHILS # (AUTO) 4.5 K/uL (1.8-7.7); NEUTROPHILS % (AUTO) 69.6 % (40.0-70.0); PLATELET COUNT (AUTO) 298 K/uL (130-430); RED BLOOD CELL COUNT(AUTO) 2.52 MIL/uL (4.2-6.2); WHITE BLOOD COUNT (AUTO) 6.5 K/uL (4.8-10.8)
[2019-05-26 08:12] LABS: CALCIUM 8.7 mg/dL (8.4-11.0); CREATININE 0.53 mg/dL (0.55-1.30); POTASSIUM 3.5 mmol/L (3.5-5.1)
[2019-05-26 08:15] VITALS: BP_SYST 135
[2019-05-26 08:57] LABS: HEMOGLOBIN 6.8 g/dL (12.0-16.0)
[2019-05-26 08:58] LABS: HEMATOCRIT 21.4 % (36-48)
[2019-05-26] MEDS: HEPARIN SODIUM,PORCINE 5000 UNITS/ML VIAL SUBCUT SCH ×2 (09:00→21:00)
[2019-05-26] MEDS: DOCUSATE SODIUM 100 MG CAPSULE PO SCH ×2 (09:00→22:43)
--- NOTE | 2019-05-26 09:08 | NUR ---
attending md consumer insights specialist dr Calderon was called, re: abnormal labs. Spoke to Leydi.
--- NOTE | 2019-05-26 09:16 | NUR ---
DR Lalit DUFFY, THE IBAN [facility]OD MD WAS CALLED DIRECTLY RE: ABNORMAL LABS.
[2019-05-26] MEDS: BALSAM PERU/CASTOR OIL 60 GM OINT...G. TP SCH (09:39)
--- NOTE | 2019-05-26 09:40 | NUR ---
Routine Patient resting comfortably in bed with no complaint of pain. NPO at this time. Heparin not given; order for PICC placement today. Patient stable.
--- NOTE | 2019-05-26 11:15 | NUR ---
Routine Checked blood sugar: 107 mg/dl - no coverage required. Patient stable.
[2019-05-26 11:25] VITALS: BP_SYST 140
--- NOTE | 2019-05-26 11:48 | NUR ---
SPEECH THERAPIST, LIZZETH WAS CALLED FOR A STAT SWALLOWING EVAL. LEFT A VOICE MESSAGE.
[2019-05-26] MEDS: MEROPENEM 500 MG IVPB PREMIX 50 ML IV SCH ×2 (15:13→21:45)
[2019-05-26 15:53] VITALS: BP_SYST 127
--- NOTE | 2019-05-26 16:10 | NUR ---
S.T. SWALLOW EVAL SWALLOW EVAL (BLUE DYE SWALLOW TEST) COMPLETED. R.T. PRESENT TO HELP WITH SUCTIONING. PT PRESENTS W/ FUNCTIONAL OROPHARYNGEAL SWALLOW FOR PUREE AND THIN/THICK LIQUIDS. NO S/S OF ASPIRATION. NO BLUE DYE SUCTIONED. REC: PUREE DIET. THIN LIQUIDS OK. PMV (PASSY STEVE VALVE) TRIAL W/ R.T. INDICATED. NURSE TONYA NOTIFIED. [id number] CJ G8997 CJ G8998 CJ NOMS LEVEL 5
[2019-05-26] MEDS: SOD FERRIC GLUC COMPLEX/SUC 125 MG in NS 100 ML IV SCH (17:13)
--- NOTE | 2019-05-26 17:15 | NUR ---
Routine Checked blood sugar: 123 mg/dl - no coverage required. Scheduled IV med given as well. Patient stable at this time.
[2019-05-26 19:00] VITALS: BP_SYST 109
--- NOTE | 2019-05-26 19:37 | NUR ---
RECEIVED WITH SECON UNIT OF PRBC INFUSING ,
--- NOTE | 2019-05-26 19:47 | NUR ---
SECOND UNIT PRBC CONSUMED AND PATIENT TOLERATED THE PROCEDURE. NO UNTOWARD MANIFESTATIONS NOTED
[2019-05-26 20:00] VITALS: BP_SYST 109
[2019-05-26 20:55] LABS: BASOPHILS % (AUTO) 0.4 % (0.0-2.0); EOSINOPHILS % (AUTO) 0.4 % (0.0-4.0); HEMATOCRIT 30.4 % (36-48); HEMOGLOBIN 9.9 g/dL (12.0-16.0); LYMPHOCYTES # (AUTO) 1.4 K/uL (1.0-5.5); LYMPHOCYTES % (AUTO) 18.2 % (20.5-51.5); MEAN CORPUSCULAR HEMOGLOBIN 28 pg (27-31); MEAN CORPUSCULAR HGB CONC 33 % (32-36); MEAN CORPUSCULAR VOLUME 86 fL (79.0-98.0); MONOCYTES # (AUTO) 0.4 K/uL (0.0-1.0); MONOCYTES % (AUTO) 5.4 % (1.7-9.3); NEUTROPHILS # (AUTO) 5.9 K/uL (1.8-7.7); NEUTROPHILS % (AUTO) 75.6 % (40.0-70.0); PLATELET COUNT (AUTO) 276 K/uL (130-430); RED BLOOD CELL COUNT(AUTO) 3.55 MIL/uL (4.2-6.2); RED CELL DISTRIBUTION WIDTH 17.4 % (9.0-15.0); WHITE BLOOD COUNT (AUTO) 7.8 K/uL (4.8-10.8)
[2019-05-26] MEDS ORDERED: TPN PERIPHERAL IV SCH ×7 (21:00)
[2019-05-26] MEDS ORDERED: [UNRECOGNIZED DRUG - OTHER] IV SCH ×7 (21:00)
[2019-05-26] MEDS ORDERED: MVI IV SCH ×7 (21:00)
[2019-05-26] MEDS ORDERED: MAGNESIUM SULFATE IV SCH ×7 (21:00)
[2019-05-26] MEDS ORDERED: K PHOS IV SCH ×7 (21:00)
[2019-05-26 21:07] LABS: ALBUMIN 1.8 g/dL (3.4-4.8); CALCIUM 8.3 mg/dL (8.4-11.0); CREATININE 0.56 mg/dL (0.55-1.30); POTASSIUM 3.1 mmol/L (3.5-5.1); TOTAL BILIRUBIN 0.3 mg/dL (0.0-1.0)
[2019-05-26] MEDS: FAT EMULSIONS 250 ML IV SCH (21:44)
--- NOTE | 2019-05-26 23:35 | NUR ---
IV CANNULA DISCONTINUED TO THE LEFT HAD INFITRATED,PICC LINE NURSE IN FOR THE PICC LINE INSERTION.CONSENT IS SIGNED
[2019-05-27] VITALS (7 sets, daily range): BP systolic 110–158
--- NOTE | 2019-05-27 00:15 | NUR ---
CHEST XRAY DONE FOR THE PICC LINE AND PICC LINE READY TO USE.
--- NOTE | 2019-05-27 00:57 | NUR ---
PPN PLACED ON THE PICC LINE DOUBLE LUMEN.IV CANNULA DISCONTINEUS TO THE LEFT HAND AND DRESSING APPLIED.
[2019-05-27 06:38] LABS: BASOPHILS % (AUTO) 0.6 % (0.0-2.0); EOSINOPHILS # (AUTO) 0.1 K/uL (0.0-0.4); EOSINOPHILS % (AUTO) 0.8 % (0.0-4.0); HEMATOCRIT 28.6 % (36-48); HEMOGLOBIN 9.6 g/dL (12.0-16.0); LYMPHOCYTES # (AUTO) 1.7 K/uL (1.0-5.5); LYMPHOCYTES % (AUTO) 22.2 % (20.5-51.5); MEAN CORPUSCULAR HEMOGLOBIN 29 pg (27-31); MEAN CORPUSCULAR HGB CONC 33 % (32-36); MEAN CORPUSCULAR VOLUME 86 fL (79.0-98.0); MONOCYTES # (AUTO) 0.4 K/uL (0.0-1.0); MONOCYTES % (AUTO) 5.2 % (1.7-9.3); NEUTROPHILS # (AUTO) 5.5 K/uL (1.8-7.7); NEUTROPHILS % (AUTO) 71.2 % (40.0-70.0); PLATELET COUNT (AUTO) 249 K/uL (130-430); RED BLOOD CELL COUNT(AUTO) 3.34 MIL/uL (4.2-6.2); RED CELL DISTRIBUTION WIDTH 17.5 % (9.0-15.0); WHITE BLOOD COUNT (AUTO) 7.7 K/uL (4.8-10.8)
[2019-05-27 07:08] LABS: ALBUMIN 1.7 g/dL (3.4-4.8); CALCIUM 8.1 mg/dL (8.4-11.0); CREATININE 0.53 mg/dL (0.55-1.30); PHOSPHORUS 1.8 mg/dL (2.7-4.5); POTASSIUM 3.1 mmol/L (3.5-5.1); TOTAL BILIRUBIN 0.6 mg/dL (0.0-1.0)
[2019-05-27] MEDS: BALSAM PERU/CASTOR OIL 60 GM OINT...G. TP SCH (09:00)
[2019-05-27] MEDS: MEROPENEM 500 MG IVPB PREMIX 50 ML IV SCH ×2 (09:00→22:04)
[2019-05-27] MEDS: DOCUSATE SODIUM 100 MG CAPSULE PO SCH ×2 (09:00→22:05)
[2019-05-27] MEDS: HEPARIN SODIUM,PORCINE 5000 UNITS/ML VIAL SUBCUT SCH ×2 (09:17→22:03)
[2019-05-27] MEDS ORDERED: KCL 40 mEq in 100 mL (PREMIX) 100 ML IV ONE (09:30)
[2019-05-27] MEDS: TPN PERIPHERAL IV SCH ×16 (11:30→22:07)
[2019-05-27] MEDS: [UNRECOGNIZED DRUG - OTHER] IV SCH ×16 (11:30→22:07)
[2019-05-27] MEDS: MAGNESIUM SULFATE IV SCH ×16 (11:30→22:07)
[2019-05-27] MEDS: K PHOS IV SCH ×16 (11:30→22:07)
[2019-05-27] MEDS: MVI IV SCH ×16 (11:30→22:07)
[2019-05-27] MEDS ORDERED: COMMUNICATION ORDER XX ONE (16:15)
[2019-05-27] MEDS: SOD FERRIC GLUC COMPLEX/SUC 125 MG in NS 100 ML IV SCH (17:00)
[2019-05-27] MEDS: D5NS 1,000 ML IV SCH (18:20)
--- NOTE | 2019-05-27 19:20 | NUR ---
initial notes: seen pt on bed, alert, awake, oriented to name and birthday, able to speak. pt has tpn at 42cc/ hr, lipids 10cc/hr, ivf d5ns at 50cc/hr infusing to right upper arm piccline. dressing dry and intact. pt has wound to coccyx region with dressing dry and intact, gtube site dressing is dry and intact. pt has bm- incontinent, valdovinos catheter draining by gravity.try to educate pt, pt is confused. maintained on contact isolation, safety on. call light in reach, side rails up. ow bed position, lock and alarm. will follow-up. Addendum: 05/28/19 at 0149 by Jm Cherry RN pt has tracheostomy with portex 7, with trach mask at 4l of o2.
--- NOTE | 2019-05-27 21:47 | NUR ---
call remote pharmacy, clarify to taper tpn, pharmacist say they don't touch tpn at night only hospital pharmacy.
[2019-05-27] MEDS: FAT EMULSIONS 250 ML IV SCH (22:06)
[2019-05-27] MEDS: INSULIN REGULAR, HUMAN 100 UNITS/ML, 10 ML VIAL (humuLIN R) SUBCUT PRN (22:37)
--- NOTE | 2019-05-27 22:39 | NUR ---
sleeping to her side facing left side. pt dont want to face the right side. educate pt. needs attended. call light in reach. safety on. will follow-up.
--- NOTE | 2019-05-28 | NUR ---
sleeping, comfortable, no sob. 98% o2 sat at monitor. safety on. call light in reach. maintained on isolation. will follow-up.
[2019-05-28 00:04] VITALS: BP_SYST 118
--- NOTE | 2019-05-28 01:42 | NUR ---
sleeping, comfortable,no pain, no sob. safety on. call light in reach. maintained on isolation. will follow-up
--- NOTE | 2019-05-28 04:15 | NUR ---
pt wakes up ask for water, no sob, not distress. pt had bm, incontinent. clean pt and change pt gown and chux. tolerate well. pt refuse to face right side. needs attended, maitained on isolation. will follow-up.
--- NOTE | 2019-05-28 06:00 | NUR ---
pt is awake, alert. no distress, no sob. stable. ivf infusing well. maintained on isolation. needs attended, call light in reach. will follow-up.
--- NOTE | 2019-05-28 07:21 | NUR ---
closing: pt is resting to her side. no sob. stable. ivf infusing well. picc line intact and patent. maintained isolation. needs attended the whole shift. bedside report given to ariadna saldaña.
--- NOTE | 2019-05-28 08:00 | NUR ---
received awake and no c/o pain vss taking diet well and requests more resp even and unlabored tpn to be tapered off refuses turning q2h.drsg sacral wound intact.continue to monitor
[2019-05-28] MEDS: DOCUSATE SODIUM 100 MG CAPSULE PO SCH ×2 (09:00→20:12)
[2019-05-28] MEDS: HEPARIN SODIUM,PORCINE 5000 UNITS/ML VIAL SUBCUT SCH ×2 (09:00→20:17)
[2019-05-28] MEDS: MEROPENEM 500 MG IVPB PREMIX 50 ML IV SCH ×2 (09:08→20:24)
--- NOTE | 2019-05-28 09:41 | NUR ---
DC plan: Dr. Brownlee is at bed side, states OK for patient to go back to SNF if OK with the surgeon. Call and spoke to Dr. Boyd . He recommends wound Vac for Sacral wound, and have WCN re-evaluation tomorrow.
[2019-05-28] MEDS: BALSAM PERU/CASTOR OIL 60 GM OINT...G. TP SCH (09:53)
[2019-05-28 09:54] LABS: BASOPHILS % (AUTO) 0.4 % (0.0-2.0); EOSINOPHILS # (AUTO) 0.1 K/uL (0.0-0.4); EOSINOPHILS % (AUTO) 1.4 % (0.0-4.0); HEMATOCRIT 30.9 % (36-48); HEMOGLOBIN 10.1 g/dL (12.0-16.0); LYMPHOCYTES # (AUTO) 2.1 K/uL (1.0-5.5); LYMPHOCYTES % (AUTO) 29.8 % (20.5-51.5); MEAN CORPUSCULAR HEMOGLOBIN 28 pg (27-31); MEAN CORPUSCULAR HGB CONC 33 % (32-36); MEAN CORPUSCULAR VOLUME 87 fL (79.0-98.0); MONOCYTES # (AUTO) 0.4 K/uL (0.0-1.0); MONOCYTES % (AUTO) 6.2 % (1.7-9.3); NEUTROPHILS # (AUTO) 4.3 K/uL (1.8-7.7); NEUTROPHILS % (AUTO) 62.2 % (40.0-70.0); PLATELET COUNT (AUTO) 234 K/uL (130-430); RED BLOOD CELL COUNT(AUTO) 3.57 MIL/uL (4.2-6.2); RED CELL DISTRIBUTION WIDTH 17.9 % (9.0-15.0)
[2019-05-28 10:12] LABS: ALBUMIN 1.8 g/dL (3.4-4.8); CALCIUM 8.1 mg/dL (8.4-11.0); CREATININE 0.53 mg/dL (0.55-1.30); PHOSPHORUS 1.9 mg/dL (2.7-4.5); POTASSIUM 3.4 mmol/L (3.5-5.1); TOTAL BILIRUBIN 0.4 mg/dL (0.0-1.0)
[2019-05-28] MEDS: K PHOS IV SCH ×8 (11:30)
[2019-05-28] MEDS: [UNRECOGNIZED DRUG - OTHER] IV SCH ×8 (11:30)
[2019-05-28] MEDS: MAGNESIUM SULFATE IV SCH ×8 (11:30)
[2019-05-28] MEDS: MVI IV SCH ×8 (11:30)
[2019-05-28] MEDS: TPN PERIPHERAL IV SCH ×8 (11:30)
[2019-05-28 12:00] VITALS: BP_SYST 125
[2019-05-28] MEDS: D5NS 1,000 ML IV SCH (13:00)
[2019-05-28] MEDS: INSULIN REGULAR, HUMAN 100 UNITS/ML, 10 ML VIAL (humuLIN R) SUBCUT PRN (13:42)
[2019-05-28 16:22] VITALS: BP_SYST 113
--- NOTE | 2019-05-28 17:00 | NUR ---
remains in no pain vss no insulin needed bs 128.continue to monitor
[2019-05-28] MEDS: SOD FERRIC GLUC COMPLEX/SUC 125 MG in NS 100 ML IV SCH (18:37)
[2019-05-28 19:00] VITALS: BP_SYST 145
--- NOTE | 2019-05-28 19:15 | NUR ---
change of shift.pt.presents isolation status;mrsa;nares,mdro,e.coli:urine.pt.presents picc line;location;rt.bicept.iv fluids infusing. pt.presents trach;w/trach mask;administering o2 therapy.general status stable.respiratory sti stus stable.call light/telephone w/in reach of the pt.,
--- NOTE | 2019-05-28 19:40 | NUR ---
report to night rn given
[2019-05-28 20:00] VITALS: BP_SYST 145
--- NOTE | 2019-05-28 20:00 | NUR ---
pt.assessed.v/s assessed.values w/in normal limits.no c/o pain,nausea.picc line intact;patent:iv fluids infusing.valdovinos cath intact;patent;urine content present.pt.assessed for cleanliness.pt.repositioned.i have apprised the pt.that i may provide snacks./beverages w/in t shift.pt.requested pudding.i have provided the snack.trach assessed:in place.trach mask in place:%=96%.call light/telephone placed w/in the reach of the pt. Addendum: 05/29/19 at 0351 by Elier Carreon RN i have placed the nsg/pt alert sign:re;picc line@[facility].i have provided the indication for the sign to the pt.
--- NOTE | 2019-05-28 20:30 | NUR ---
i have assessed the blood glucose;value;135mg/dl.i have apprised the pt.of the value.pt.requested pudding.i have provided the pudding;diabetic.
--- NOTE | 2019-05-28 21:00 | NUR ---
2100pmedications administered.pt.capable to ingest the medications whole.w/out difficulty.pt.had requested pudding. i have provided the pudding;diabetic.
--- NOTE | 2019-05-28 22:00 | NUR ---
pt.assessed.pt.assessed for cleanliness.pt.repositioned.picc line intact;patent;iv fluids infusing.valdovinos cath intact;patent;urine content present. trach in place;%=96%gfenral status stable.respirapr stau se.call light/telephone placed w/in reach of the pt.
--- NOTE | 2019-05-29 | NUR ---
pt.assessed.v/s aSsessED,VALUES W/IN normal LIMITS.NO C/O PAiN,NAUSEA.PT REQUeSTEd PUDDING/I HAVE PROVIDed THe PUDDING. pt.assessed for cleanliness.pt.repositioned.valdovinos cath intact;patent;urine content present.picc line intact;patent;iv fluids infusing. general status stable.respiratory status stable.trach intact;02-sat%=94%.call light/telephone placed w/in rec of the pt.
[2019-05-29 00:07] VITALS: BP_SYST 123
--- NOTE | 2019-05-29 02:00 | NUR ---
pt.assessed.pt.assessed for cleanliness.pt.cleaned.pt.repositioned.pt requested snacks.i have provided jello.x2.picc line intact;patent;iv fluids infusing.valdovinos cath intact;patent;urine content present.trach in place:o2 therapy administering; 02sat=96%.general status stable.respiratory status stable.unlabored.call light/telephone placed w/in reach of the pt.
--- NOTE | 2019-05-29 04:00 | NUR ---
pt.assessed.pt.presents quiescent affect;calm,somnolent.pt.assessed for cleanliness.pt.repositioned.picc line intact;patent; iv fluids infusing.valdovinos cath intact;patent urine content present.trach in place administering o2 therapy:02-sat%=96%.general status stable.respiratory status stable.call light/telephone placed w/in reach of the pt.
--- NOTE | 2019-05-29 06:30 | NUR ---
pt asd.i have chnagd the g-tube siter dsg.p[t prst ed requrts for consumme.ihave provide th consumme.picc line inatct;patnt:iv f.luids infng.trach in place;trch mask in palce administe o2@$L?MIN:)@_SAT%+(^%>GARRETT CATH INATCT:PATTN:URINE CONTENTPRESTY>i blood gluose ased:value:!#%mg?dl>!#%mg?dl>no c?o pian<nausea>general status stable>respiratpry status
[2019-05-29 07:01] LABS: BASOPHILS % (AUTO) 0.4 % (0.0-2.0); EOSINOPHILS # (AUTO) 0.1 K/uL (0.0-0.4); EOSINOPHILS % (AUTO) 2.1 % (0.0-4.0); HEMATOCRIT 28.8 % (36-48); HEMOGLOBIN 9.6 g/dL (12.0-16.0); LYMPHOCYTES # (AUTO) 2.1 K/uL (1.0-5.5); LYMPHOCYTES % (AUTO) 33.1 % (20.5-51.5); MEAN CORPUSCULAR HEMOGLOBIN 29 pg (27-31); MEAN CORPUSCULAR HGB CONC 33 % (32-36); MEAN CORPUSCULAR VOLUME 87 fL (79.0-98.0); MONOCYTES # (AUTO) 0.4 K/uL (0.0-1.0); MONOCYTES % (AUTO) 6.8 % (1.7-9.3); NEUTROPHILS # (AUTO) 3.6 K/uL (1.8-7.7); NEUTROPHILS % (AUTO) 57.6 % (40.0-70.0); PLATELET COUNT (AUTO) 213 K/uL (130-430); RED BLOOD CELL COUNT(AUTO) 3.33 MIL/uL (4.2-6.2); RED CELL DISTRIBUTION WIDTH 18.2 % (9.0-15.0); WHITE BLOOD COUNT (AUTO) 6.3 K/uL (4.8-10.8)
[2019-05-29 07:16] LABS: ALANINE AMINOTRANSFERASE 9 U/L (12-78); ALBUMIN 1.7 g/dL (3.4-4.8); ASPARTATE AMINOTRANSFERASE 14 U/L (10-37); CALCIUM 8.4 mg/dL (8.4-11.0); CHLORIDE 95 mmol/L (98-107); CREATININE 0.55 mg/dL (0.55-1.30); GLUCOSE 113 mg/dL (70-99); POTASSIUM 4.2 mmol/L (3.5-5.1); SODIUM SERUM 126 mmol/L (136-145); TOTAL BILIRUBIN 0.4 mg/dL (0.0-1.0); UREA NITROGEN, BLOOD 13 mg/dL (8-21)
[2019-05-29 07:22] LABS: GFR AFRICAN AMERICAN 142 mL/min (>90)
[2019-05-29 07:23] LABS: ANION GAP < 3 (5-15)
--- NOTE | 2019-05-29 08:00 | NUR ---
RN INITIAL NOTES RECEIVED PATIENT IN BED ALERT AWAKE AND WITH TRACH WITH O2 5L/MIN MASK, VERBALLY RESPONSIVE NO DISTRESS, WITH STOMA WOUND DRESSING INTACT , PICC LINE TO RT UPPER ARM X 2 LUMEN , NO PAIN
[2019-05-29 09:00] VITALS: BP_SYST 147
[2019-05-29] MEDS: BALSAM PERU/CASTOR OIL 60 GM OINT...G. TP SCH (09:00)
[2019-05-29] MEDS: HEPARIN SODIUM,PORCINE 5000 UNITS/ML VIAL SUBCUT SCH ×2 (09:41→21:06)
[2019-05-29] MEDS: DOCUSATE SODIUM 100 MG CAPSULE PO SCH ×2 (09:42→21:03)
[2019-05-29] MEDS: MEROPENEM 500 MG IVPB PREMIX 50 ML IV SCH ×2 (09:43→21:04)
[2019-05-29] MEDS: D5NS 1,000 ML IV SCH (09:54)
--- NOTE | 2019-05-29 10:00 | NUR ---
ROUNDS PATIENT SLEEPING AND SAID DONT TOUCH ME FOR NOW IM SLEEPING, PATIENT KEEP REMOVING O2 SAT MONITOR AND SATING 96%
--- NOTE | 2019-05-29 11:51 | NUR ---
Discharge Planning: LOAN ADVISER has faxed pt's information back to [facility] ([phone] [phone]). LOAN ADVISER or DCP will follow up.
--- NOTE | 2019-05-29 12:00 | NUR ---
ROUNDS DR DUFFY CAME DISCUSSED PATIENT CONDITION WITH DC PLANNING
[2019-05-29 12:37] VITALS: BP_SYST 151
--- NOTE | 2019-05-29 14:00 | NUR ---
DR DONNIE BLAIR CALLED AND WANTS TO SPEAK WITH WOUND NURSE STEFAN TO VERIFY AND TO NEED TO ORDER WOUND VAC IF NECESSARY AND WANTS STEFAN TO RE EVAL PATIENT WOUND IF NEEDS TO HAVE WOUND FLAP , INFORMED CHARGE NURSE , STATED TO NOTIFY STEFAN IN AM . ORDER PLACED
--- NOTE | 2019-05-29 16:00 | NUR ---
ROUNDS PATIENT EATING AND NO SIGN OF DISTRESS , OR ASPIRATION , PATIENT AGREED TO HAVE WOUND DRESSING BUT VERY INPATIENT AND KEEP WANTING TO TURN TO HER SIDES AND EXPLAINED TREATMENT , PATIENT WOUND UNABLE TO DO TREATMENT PROPERLY D/T UNCOOPERATIVE
[2019-05-29 16:35] VITALS: BP_SYST 116
[2019-05-29] MEDS: SOD FERRIC GLUC COMPLEX/SUC 125 MG in NS 100 ML IV SCH (17:44)
--- NOTE | 2019-05-29 19:00 | NUR ---
ENDORSMENT WILL CONT WITH MEDS AND DC PLANNING TO VERIFY WITH PRIMARY DR IF THE WOUND VAC OR WOUND FLAP TO BE DONE HERE OR FOR DC BACK TO SNF, PATIENT SATING 96% ON 5 L/MIN , KEEP SELF RESTED FERRITIN GIVEN , PICC LINE AND GARRETT CATH INTACT
[2019-05-29 20:00] VITALS: BP_SYST 108
--- NOTE | 2019-05-29 20:00 | NUR ---
ASSUMED CARE. RECEIVED ALERT,ORIENTED. AFEBRILE, NOT IN ACUTE DISTRESS. DENIES ANY PAIN OR DISCOMFORT. WITH IV FLUID D5NS INFUSING AT 50 ML/HR VIA RIGHT UPPER ARM DOUBLE LUMEN PICC LINE. GARRETT CATHETER DRAINING CLEAR YELLOW URINE. SAO2=94% ON 4 LPM HUMIDIFIED O2 VIA TRACH MASK. SCD'S IN PLACE. CONTACT ISOLATION FOR MRSA NARES IS BEING OBSERVED. VS STABLE, WILL CONTINUE TO MONITOR. NEEDS ATTENDED.
[2019-05-29] MEDS: INSULIN REGULAR, HUMAN 100 UNITS/ML, 10 ML VIAL (humuLIN R) SUBCUT PRN (21:07)
--- NOTE | 2019-05-29 21:07 | NUR ---
FINGERSTICK BLOOD SUGAR [id number]. REGULAR INSULIN 2 UNITS SQ GIVEN PER SLIDING SCALE. OTHER DUE MEDICATIONS ALSO GIVEN.
--- NOTE | 2019-05-30 | NUR ---
ASLEEP, NOT IN ACUTE DISTRESS. NO PAIN OR DISCOMFORT NOTED. SIDE RAILS UP, CALL LIGHT WITHIN REACH. KEPT WARM AND COMFORTABLE. VS REMAIN STABLE.
[2019-05-30 00:04] VITALS: BP_SYST 127
--- NOTE | 2019-05-30 04:15 | NUR ---
AWAKE, NO CHANGE IN CONDITION. DRESSING TO SACRAL DECUBITUS ULCER CHANGED. WILL CONTINUE TO MONITOR.
[2019-05-30] MEDS: D5NS 1,000 ML IV SCH ×2 (05:00→16:19)
--- NOTE | 2019-05-30 06:31 | NUR ---
FINGERSTICK BLOOD SUGAR CHECK=89. NO INSULIN COVERAGE NEEDED.
--- NOTE | 2019-05-30 07:10 | NUR ---
ENDORSED CARE TO DEV FLORES.
[2019-05-30] MEDS: DOCUSATE SODIUM 100 MG CAPSULE PO SCH (09:18)
[2019-05-30] MEDS: MEROPENEM 500 MG IVPB PREMIX 50 ML IV SCH (09:18)
[2019-05-30] MEDS: HEPARIN SODIUM,PORCINE 5000 UNITS/ML VIAL SUBCUT SCH (09:25)
[2019-05-30 10:00] VITALS: BP_SYST 120
--- NOTE | 2019-05-30 10:00 | NUR ---
ROUNDS PATIENT SLEEPING At
--- NOTE | 2019-05-30 10:00 | NUR ---
ROUNDS PATIENT NOT IN ANY DISTRESS , IVF INFUSING ORDERED , EPISODES OF NOT COOPERATIVE WITH CARE , AWAITING FOR WOUD NURSE TO RE EVAL PATIENT SACRAL WOUND
[2019-05-30] MEDS: BALSAM PERU/CASTOR OIL 60 GM OINT...G. TP SCH (12:08)
--- NOTE | 2019-05-30 12:10 | NUR ---
WOUND DRESSING PATIENT SEEN AND RE EVAL BY WOUND NURSE STEFAN , DRESSING DONE AND STEFAN WILL CALL DR FIELDS REGARDING HIS RE- EVAL OF THE PATIENT WOUND . WILL CONT CARE, PATIENT SATING 94% ON O2 MASK, PATIENT THREW THE O2 SAT MACHINE AND SHE LIKES TO DIG HER HANDS WITH THE 02 MACHINE AND FULL OF BM , REMINDED PATIENT NOT TO DO THAT BUT SHE FORGETS AND SHE NON COMPLIANT WITH CARE
--- NOTE | 2019-05-30 12:10 | NUR ---
WOUND RE-EVALUATION: Late note for 1210 secondary to patient care. Patient received in a Kirsten Bed with an Isoflex THOM mattress, awake, alert, and oriented. Patient is unable to turn independently. Torey Score is a 12. Past Medical History: Hypertension, COPD, Obesity, Laryngeal Cancer, Dysphagia, status post Tracheostomy, PEG placement. Microbiology: Urine culture results positive for Escherichia coli (MDRO) and Proteus mirabilis (MDRO). Intrinsic factors that delay wound healing: COPD, Laryngeal Cancer, Dysphagia, Hypoalbuminemia. Extrinsic factors that delay wound healing: Decreased mobility. Wound Assessment: 1. Sacral area: Stage IV pressure ulcer, present on admission. Wound bed has 15% yellow slough, 85% pink tissue. No odor, no drainage. Radha-wound white. Wound measures 5.5 cm by 2.0 cm x 3.2 cm. 100% undermining present: 12 o'clock: 1.7 cm; 3 o'clock: 2.2 cm; 6 o'clock: 1.1 cm; 9 o'clock: 2.0 cm. Bone is palpable. Recommend continue: Cleanse wound with normal saline. Apply moisture barrier cream to radha-wound. Apply Venelex ointment to wound bed. Pack wound with 2.2 inch tender wet dressings. Cover with Sacral foam dressing. Perform wound care daily, and as needed for dressing soiling or dislodgement. 2. Left lateral hip: Left lateral hip including greater trochanter area has blanchable red erythema. Patient was lying on left hip when wound care staff entered the room. Tried to offload involved area or at least place a pillow underneath it and patient refused. Recommend: Offload involved area at all times. Also recommend: Encourage and reposition patient [id number] only every 2 hours with pillow support and off-load pressure areas with pillows for pressure re-distribution. Offload, elevate and float bilateral heels with one pillow lengthwise under each extremity at all times. Perform skin care and monitor skin integrity Q shift. Use moisture barrier cream on buttocks and other moisture susceptible areas QID and as needed for soiling. Initiate low air-loss therapy. Discharge Planning: Dr. Beckman (consulting surgeon) gave ok for discharge to SNF, and ordered the following: Wound Care Orders at SNF: 1. Cleanse wound with normal saline. 2. Pat dry around wound. 3. Apply sure prep to periwound and surrounding tissue. 4. Place black Granufoam dressing into wound bed and undermined areas. 5. Cover site with VAC drape. 6. Cut a hole into wound VAC dressing. 7. Apply sure prep from non-bony portion of hip to wound site, lay VAC drape, then black granufoam dressing, then lay VAC drape over black granufoam dressing. 8. Attach suction attachment to the end of the bridge on the thigh. 9. Run wound VAC at 125 mmHg continuous. 10. Change dressing Q Wednesday/Wednesday/Wednesday and as needed for dressing soiling or dislodgment. Plan: NPWT to assist in granulation tissue for possible flap closure.
[2019-05-30 12:20] VITALS: BP_SYST 127
--- NOTE | 2019-05-30 12:30 | NUR ---
DC Planning: Requesting MARK Chance to call dr. Brownlee for dcp vs dc order back to [facility]. She will f/u with Mati for wound reeval and the okay to have wd vac at [facility] .
--- NOTE | 2019-05-30 13:30 | NUR ---
WOUND NURSE STEFAN INFORMED STEFAN RESEARCH PROGRAM ASSISTANT CALLED TO VERIFY IF PATIENT NEEDS TO BE ON WOUND VAC PER STEFAN HE LEFT A MESSAGE WITH DR FIELDS TO GET AN ORDER FOR WOUND VAC TO BE STARTED IN SNF , BUT NO ANSWER YET, CHARGE NURSE MADE AWARE
--- NOTE | 2019-05-30 15:27 | NUR ---
Discharge Planning: DCP faxed pt referral to [facility] (f [phone] p [phone]) DCP spoke to Craig regarding patient will need a Wound Vac. DCP will follow up.
--- NOTE | 2019-05-30 16:00 | NUR ---
REPORT TO SHANNA GRIDER CALLED [facility] SPOKE WITH LORI CROWELL AND HE SAID HE WILL CALL ME RIGHT BACK Addendum: 05/30/19 at 1901 by Meron Davis RN ERROR IC CHARTING
[2019-05-30] MEDS: SOD FERRIC GLUC COMPLEX/SUC 125 MG in NS 100 ML IV SCH (16:08)
[2019-05-30 16:20] VITALS: BP_SYST 113
--- NOTE | 2019-05-30 16:44 | NUR ---
DISCHARGE ORDER CALLED DR DUFFY ERECTING ENGINEER CAP LINING MACHINE OPERATOR OCTOBER ROBBY, INFORMED PATIENT CONDITION THAT PATIENT IS CLEARED BY SURGEON DR FIELDS TO START WOUND VAC TO SNF ,ORDERS NOTED PER CAP LINING MACHINE OPERATOR OCTOBER CONT. SAME MEDS , KEEP PICC LINE, KEEP GARRETT CATHETER AND DR DUFFY WILL FOLLOW UP PATIENT , CALLED DRAWING IN [place] AND LEFT MESSAGE REGARDING THE ORDER , WILL CONT WITH CARE , PATIENT WOUND DRESSING DONE AGAIN PATIENT HAD ANOTHER BM, CHARGE NURSE MADE AWARE
--- NOTE | 2019-05-30 17:06 | NUR ---
DC Planning: Notified Craig at [facility] the pt will need wound vac set up at sub acute unit. Per Mati and dr. Beckman, to do daily moist dressing to sacral wound until having wound vac ready for the pt. Craig accepted the pt to room 32 C , RN to report # [phone]. MARK Chance made aware and to give report to [facility].
--- NOTE | 2019-05-30 17:28 | NUR ---
DC PLANNING CALLED [facility] AT [phone] SPOKE WITH SLADE ADVISED IT IS AFTER 5 PM AND WOULD TRANSFER ME TO [facility] WHICH IS [facility] HOWEVER HE MAY NOT BE IN THE OFFICE AT THIS TIME. TRANSFERRED TO [facility] LEFT A DETAILED MESSAGE REGARDING DC ORDER AND ACCEPTANCE BACK TO SAME SUBACUTE SHE CAME FROM [facility]GE GRIDER.
--- NOTE | 2019-05-30 17:30 | NUR ---
REPORT TO MARGE GRIDER PATIENT REPORT TO LORI AND WILL PROCESS TRANSFER TONIGHT , PATIENT WOUND DRESSING DONE AND PICTURES TAKEN
--- NOTE | 2019-05-30 17:37 | NUR ---
[facility]anged [facility] to go to [facility] room 32 C spoke to Derik continuous pickling line pickler helper time between 7 to 7:30 pm
--- NOTE | 2019-05-30 17:48 | NUR ---
Nutrition F/U RD reviewed pt's current EMR record including diet Hx, physician notes, nursing notes, pertinent labs/meds/procedures, care trends, and care activity. Admission Dx: Displaced GT PMH: non-functioning GT, chronic respiratory failure, dysphagia, sacral ulcer, HTN, muscle weakness, laryngeal CA, COPD, anemia, hyponatremia, dyslipidemia per physician notes Current Diet Order/Nutrition Support: Pureed x4 days Pertinent Medical Info: Pt was seen by ST for swallow eval 05/26/19; ST rec for puree diet. Subjective Info: Pt was seen resting in bed at time of RD visit. Pt reported good appetite, happy to eat. Pt stated she likes vanilla Ensure Enlive. RN reported that pt has been eating well, and even asks for additional foods. Per EMR, PO intake records indicate 89% average x10 meals. Estimated Energy Expenditure (kcals/day) 9902-3261 kcal/day (30-35 kcal/kg IBW for wound healing) Estimated Protein Required (g/day) 102-136 gm/day (1.5-2gm/kg IBW for wound healing ) Estimated Fluid Required (l/day) 2L/day (30ml/kg IBW for wound healing) Problem/Etiology/Signs/Symptoms Increased protein-calorie needs r/t metabolic demands AEB presence of decubitus ulcer and low Torey score. *ongoing Expected Outcomes/Goals Monitor provision of EN support w/ goal of pt meeting at least 75% of estimated nutritional needs, labs trending WNL, normal GI function, skin integrity/wt maintenance. Dietitian Recommendations * Recommend continuing pureed diet (ONS Ensure Enlive TID comes standard w/ pureed diet; provides an additional 1050 kcal/day, 60 gm protein/day) Follow Up Moderate Risk: F/U in 3-5 days
--- NOTE | 2019-05-30 17:52 | NUR ---
Dietitian Recommendations * Recommend continuing pureed diet (ONS Ensure Enlive TID comes standard w/ pureed diet; provides an additional 1050 kcal/day, 60 gm protein/day) LP, RD Please refer to Nutrition F/U for details.
[2019-05-30 17:58] VITALS: BP_SYST 123
[2019-05-30 18:09] VITALS: BP_SYST 123
--- NOTE | 2019-05-30 19:03 | NUR ---
ENDORSEMENT WILL ENDORSE TO NEXT SHIFT CONT CARE WHILE WAITING FOR THE AMBULANCE ANESTHESIOLOGY TECH, PATIENT WILL CONT WITH PICC LINE, WITH GARRETT CATH AND WOUND DRESSING DONE , WITH TRACH MASK 02 @ 4/L/MIN SATING 96%, NO DISTRESS AND NO COMPLAIN OF PAIN
--- NOTE | 2019-05-30 19:20 | NUR ---
Opening note Received patient, awake, resting in bed. No s/sx of distress. Nonlabored breathing on T-bar. PIIC line to JEFF is patent and set saline lock. V/S stable; B/P 120/69, HR 72, SpO2 97%. Emptied valdovinos catheter. Bed is locked in lowest position, bed alarm on and call light w/in reach.
--- NOTE | 2019-05-30 20:15 | NUR ---
Discharge Report given to Joe, EMT form [facility]. Patient's copy of records, medication reconciliation form, D/C instructions,and Exit Care provided. Transported via gurney-Ambulance to [facility]. Patient in stable condition, ID band removed. PIIC line kept in place, valdovinos catheter kept in place. Patient educated on pain management. All belongings sent with patient.
--- NOTE | 2019-05-31 11:53 | NUR ---
DCP called to inform POA of patients RACIEL OSORIO.
== END 2019-05-30 20:15 | DRG 252 ==
LOC: SED 19:50 → SMU 20:36
PROVIDERS: ADMIT Student in an Organized Health Care Education/Training Program; ATTEND Internal Medicine
PROC: 0DJ08ZZ Inspection of Upper Intestinal Tract, Via Natural or Artificial Opening Endoscopic (ICD-10-PCS; 2019-05-24 08:30)
PROC: 30233N1 Transfusion of Nonautologous Red Blood Cells into Peripheral Vein, Percutaneous Approach (ICD-10-PCS; principal; 2019-05-26)
PROC: 02HV33Z Insertion of Infusion Device into Superior Vena Cava, Percutaneous Approach (ICD-10-PCS; 2019-05-26)
PROC: B548ZZA Ultrasonography of Superior Vena Cava, Guidance (ICD-10-PCS; 2019-05-26)
DX: K94.23 Gastrostomy malfunction (principal); E43 Unspecified severe protein-calorie malnutrition; L89.154 Pressure ulcer of sacral region, stage 4; J96.10 Chronic respiratory failure, unspecified whether with hypoxia or hypercapnia; C32.9 Malignant neoplasm of larynx, unspecified; J44.9 Chronic obstructive pulmonary disease, unspecified; R13.10 Dysphagia, unspecified; E87.1 Hypo-osmolality and hyponatremia; K94.13 Enterostomy malfunction; D63.8 Anemia in other chronic diseases classified elsewhere; E66.9 Obesity, unspecified; E78.5 Hyperlipidemia, unspecified; I10 Essential (primary) hypertension; F17.290 Nicotine dependence, other tobacco product, uncomplicated; N39.0 Urinary tract infection, site not specified; Z90.710 Acquired absence of both cervix and uterus; Z88.6 Allergy status to analgesic agent; Z88.0 Allergy status to penicillin; Z79.899 Other long term (current) drug therapy; Z68.28 Body mass index [BMI] 28.0-28.9, adult
CPT/HCPCS: 36415; 43235; 43246; 71045; 76770; 80048; 80053; 80061; 81000-TC; 82607; 82728; 82746; 82962; 83036; 83540-TC; 83550-TC; 83735-TC; 83880; 84100-TC; 84443-TC; 84478-TC; 84484; 85025; 85610-TC; 85730-TC; 86886; 86900; 86901; 86920; 87081; 87086; 87186-TC; 92610-GN; 93005; 94760; 99285; C1751; C1769; J0696; J0885; J1644; J1815; J2185; J2250; J2916; J3010; J3370; J3475; J3480; J7030; J7042; J7050; J7060; J7131; P9021

== ENCOUNTER 2019-12-25 11:24 | Outpatient (CLI) | payer MEDICARE, MEDICAID ==
[~2019-12-25 11:24] MED LIST: ALBU8.5H8 INH; ASCO500T20 PO; CHLO473M5 PO; CRAN450T9 PO; DOCU-144 PO; GLYC1TAB9 PO; INSU100I26 SQ; LEVO500T89 PO; MAGN400T10 PO; MULT-1100 PO; OMEP40CA33 PO; SENN8.6T19 PO; SSNOVOLOG SUBCUT; TRAM100C3 PO; TRAM100T34 PO; TRAM50TA2 PO; ZINC220T4 PO
[2019-12-25] MEDS ORDERED: IOHEXOL 100 ML IV ONE (12:00)
== END 2019-12-25 19:48 | disposition home or self-care (01) ==
LOC: SCT 11:24
DX: Z12.81 Encounter for screening for malignant neoplasm of oral cavity (principal); Z85.21 Personal history of malignant neoplasm of larynx; Z93.0 Tracheostomy status; E04.9 Nontoxic goiter, unspecified
CPT/HCPCS: 70491; Q9967

== ENCOUNTER 2020-01-21 15:15 | Inpatient (IN) | payer MEDICAID, MEDICARE, SELFPAY ==
[~2020-01-21] VITALS: Ht 172.7 cm; Wt 81.6 kg
[2020-01-21] VITALS (10 sets, daily range): BP systolic 58–133
--- NOTE | 2020-01-21 15:15 | NUR ---
PLACED IN BED 8, TRIAGED AT BEDSIDE, DR. PRETTY EXAMINING PT
[2020-01-21] MEDS ORDERED: NACL 0.9% 2,500 ML IV ONE (15:25)
[2020-01-21] MEDS ORDERED: MEROPENEM 1 GM in NS 100 ML IV ONE (15:30)
[2020-01-21] MEDS ORDERED: VANCOMYCIN HCL 1,000 MG in NS 250 ML IV ONE (15:30)
--- NOTE | 2020-01-21 15:30 | NUR ---
BIB MEDICS FROM SNF FOR ALOC/RESP DISTRESS, UPON ARRIVAL, AMBUBAG VENTILATION VIA TRACH, SAO2 99%, HYPOTENSIVE MD AWARE, ORDERS. PERRL , UNRESPONSIVE. RT ARRIVED TO BEDSIDE, PLACED ON VENT, SR ON TR
--- NOTE | 2020-01-21 15:35 | NUR ---
DR PRETTY IN TO ASSESS
[2020-01-21] MEDS ORDERED: NOREPINEPHRINE BITARTRATE 4 MG in NS 246 ML IV ONE (15:45)
[2020-01-21 16:02] LABS: HEMATOCRIT 33.7 % (36-48); HEMOGLOBIN 10.8 g/dL (12.0-16.0); MEAN CORPUSCULAR HEMOGLOBIN 29 pg (27-31); MEAN CORPUSCULAR HGB CONC 32 % (32-36); MEAN CORPUSCULAR VOLUME 90 fL (79.0-98.0); PLATELET COUNT (AUTO) 202 K/uL (130-430); RED BLOOD CELL COUNT(AUTO) 3.76 MIL/uL (4.2-6.2); RED CELL DISTRIBUTION WIDTH 13.6 % (9.0-15.0); WHITE BLOOD COUNT (AUTO) 19.1 K/uL (4.8-10.8)
[2020-01-21] MEDS ORDERED: NOREPINEPHRINE 4 MG/4 ML VIAL IV ONE (16:03)
[2020-01-21 16:08] LABS: CALCIUM 11.5 mg/dL (8.4-11.0); CREATININE 1.19 mg/dL (0.55-1.30); POTASSIUM 3.8 mmol/L (3.5-5.1)
[2020-01-21 16:13] LABS: BILIRUBIN,URINE NEGATIVE (NEGATIVE); BLOOD, URINE 2+ (NEGATIVE); CLARITY/URINE SL CLOUDY (CLEAR); COLOR,URINE YELLOW (YELLOW); GLUCOSE,URINE NEGATIVE (NEGATIVE); KETONES,URINE NEGATIVE (NEGATIVE); LEUKOCYTE ESTERASE ,URINE 2+ (NEGATIVE); NITRITE, URINE NEGATIVE (NEGATIVE); PROTEIN URINE 2+ (NEGATIVE); UROBILINOGEN,URINE 0.2 (0.2-1.0)
[2020-01-21 16:14] LABS: ALBUMIN 2.6 g/dL (3.4-4.8); TOTAL BILIRUBIN 0.3 mg/dL (0.0-1.0)
[2020-01-21 16:19] LABS: BAND % (MANUAL) 6 % (0-6); LYMPHOCYTES % (MANUAL) 12 % (20-46); MONOCYTES % (MANUAL) 1 % (0-11)
[2020-01-21 16:20] LABS: BASOPHILS % (MANUAL) 0 % (0-2); EOSINOPHILS % (MANUAL) 0 % (0-7); METAMYELOCYTES % 1 % (0-0)
--- NOTE | 2020-01-21 16:30 | NUR ---
SEIZURE ACTIVITY OBSERVED. MD AWARE, PT HAS BRIEF FULL BODY TREMORS WITH ARMS SWINGING INTO THE AIR. SEVERAL EPISODE OBSERVED
[2020-01-21 16:36] LABS: BACTERIA,URINE MODERATE /HPF (None Seen)
--- NOTE | 2020-01-21 16:45 | NUR ---
# 16 FR Valdovinos catheter with use of sterile technique. Immediate return of 125 cc CLOUDY YELLOW urine noted. Bedside drainage bag placed below level of bladder. Urine sample collected and sent to lab. Pt tolerated procedure WELL Patient arrived with valdovinos in place, changed due to standard of practice prior to admission. Patient unable to toilet self.
--- NOTE | 2020-01-21 17:00 | NUR ---
AN INCREASE IN THE FREQUENCY OF SEIZURE ACTIVITY OBSERVED. FULL BODY TREMOR LASTING 5-10 SECONDS. BRIEF AND MORE FREQUENT, MD BASILIO
[2020-01-21] MEDS ORDERED: VANCOMYCIN HCL 1000 MG/VIAL IV ONE (17:04)
[2020-01-21] MEDS ORDERED: MEROPENEM 500 MG VIAL IV ONE (17:05)
--- NOTE | 2020-01-21 17:08 | NUR ---
Admit orders received from Dr. Funez. Pt will go to ICU bed 4
--- NOTE | 2020-01-21 17:10 | NUR ---
TRANSPORTED TO CT WITH RT, PT TOLERATED WELL
[2020-01-21] MEDS ORDERED: metroNIDAZOLE 500 mg/NS 100 ML IV ONE ×2 (17:15→20:56)
--- NOTE | 2020-01-21 17:44 | NUR ---
Patient will be admitted to care of MD. Admitted to ICU unit. Will go to room 4. Belongings list completed. Complete and up to date summary report printed. SBAR report to be given at bedside with opportunity for questions.
--- NOTE | 2020-01-21 18:05 | NUR ---
TRANSPORTED TO ICU W/OUT INCIDENT
--- NOTE | 2020-01-21 18:06 | NUR ---
ADMISSION NOTE Received patient from ER via gurney. Patient admitted with diagnosis of sepsis. Patient is awake, alert, oriented X 0. Patient oriented to hospital room, call light, toileting, pain management and safety-teach back done.
--- NOTE | 2020-01-21 18:11 | NUR ---
CONSULT ID CONSULTING MD: DR. OWENS SPOKE TO: HERNAN DIALED: [phone] ORDERED BY: DR. VILLAGOMEZ
--- NOTE | 2020-01-21 18:40 | NUR ---
PAGED FOR CONSULT ORDERING PHYSICIAN: DR. VILLAGOMEZ DIALED: [phone] SPOKE TO: AUTOMATED EXCHANGED
[2020-01-21] MEDS ORDERED: FLU VACC QS2020-21(65UP)/PF 0.7 ML/SYRINGE I.M. PRN (18:45)
--- NOTE | 2020-01-21 18:46 | NUR ---
Spoke with Dr. Lee regarding consult.
[2020-01-21] MEDS: 0.45% NACL 1,000 ML IV SCH (18:54)
[2020-01-21] MEDS: LORazepam 2 MG/ML VIAL IVP PRN ×2 (18:55→20:57)
[2020-01-21 19:19] LABS: INR 1.1 (0.8-1.2); PROTHROMBIN TIME 10.6 SECS (9.5-12.5)
--- NOTE | 2020-01-21 19:25 | NUR ---
Report given to NOC shift nurse. Rocephin, wound pictures, and consult follow ups endorsed.
--- NOTE | 2020-01-21 20:00 | NUR ---
Pt resting quietly. No seizure activity noted at this time. Oral care provided. Respirations even and non-labored with ezvi-ib-lavsw settings: A/C, R 15, Vt 500, Peep 5, FiO2 100%. Levophed at 1 mcg/kg/min to RAC and 1/2 NS at 100 mL/hr to LFA with both sites patent and secure, no s/s infiltration. F/C draining yellow and turbid urine. VSS.
--- NOTE | 2020-01-21 20:50 | NUR ---
Intermittent jerking motions noted, lasting about 3 sec in duration. Ativan 0.5 mg given IVP.
[2020-01-21] MEDS ORDERED: FLU VACC QS2020-21 (6 mos & up) 0.5 ML/SYRINGE I.M. PRN (21:00)
--- NOTE | 2020-01-21 22:00 | NUR ---
Pt resting quietly, eyes open, no seizure activity noted at this time. NAD. B/P 122/44, HR 64. Levophed titrated to 0.07 mcg/kg/min.
--- NOTE | 2020-01-21 22:30 | NUR ---
B/P 108/78, HR 74. Levophed titrated to 0.004 mcg/kg/min. Addendum: 01/23/20 at 0347 by Oseas Patel RN Levophed titrated to 0.04 mcg/kg/min.
--- NOTE | 2020-01-21 23:00 | NUR ---
Pt resting quietly with no seizure activity noted. B/P 124/62, HR 80. Levophed titrated to 0.04 mcg/kg/min.
--- NOTE | 2020-01-21 23:00 | NUR ---
B/P 124/62, HR 80. Levophed titrated to 0.001 mcg/kg/min. Addendum: 01/23/20 at 0347 by Oseas Patel RN Levophed titrated to 0.01 mcg/kg/min.
--- NOTE | 2020-01-21 23:15 | NUR ---
B/P 129/64, HR 77. Levophed off.
[2020-01-22] VITALS (29 sets, daily range): BP systolic 87–163
--- NOTE | 2020-01-22 00:55 | NUR ---
Intermittent jerking movements noted. B/P Ativan 0.5 mg given IVP.
[2020-01-22] MEDS: LORazepam 2 MG/ML VIAL IVP PRN ×2 (04:25→06:35)
[2020-01-22] MEDS: 0.45% NACL 1,000 ML IV SCH (04:25)
--- NOTE | 2020-01-22 04:52 | NUR ---
Open sacral wound with underlying tissues exposed and circumscribed by an area of pink-red tissue. Serosanguinous drainage noted. Length 2.5 cm, Depth 2 cm, Width 1 cm. Undermining at 10 O'Clock. Wound packed with 4 cm Tenderwet and Z-guard placed, covered with foam dressing. Next dressing change due 01/23/20 at 0452.
--- NOTE | 2020-01-22 07:15 | NUR ---
Nutrition Update Torey Scale 10 noted. Pt admitted for Sepsis Diet: no diet order BMI: 27.4 kg/m2 RD to follow per nutrition care standards.
--- NOTE | 2020-01-22 07:30 | NUR ---
Dr. Lange rounded and orders left. IVF changed. Seizure medication ordered.
--- NOTE | 2020-01-22 07:30 | NUR ---
Pt lying in bed with eyes open and does not respond to instruction. Pt noted to have constant seizures myclonic jerking of upper body at frequent intervals. MARIAMA 3mm. Sr on monitor. VSS. Pt has a trach and is on the vent and in no distress on Ac 15/500/100%/p5. Abgs ordered and are being drawn. Pt has a right AV IV that is occluded. Pt has an 18g left AC saline lock with NS infusing at 75cc/hr. Conti cath with small amount of yellow urine in bag. HOB up 30. Feet placed on pillows and lifted off the bed. Will continue to monitor.
[2020-01-22] MEDS ORDERED: PROPOFOL DRIP 100 ML IV PRN (08:00)
[2020-01-22] MEDS: NACL 0.9% 1,000 ML IV SCH ×2 (08:00→21:42)
--- NOTE | 2020-01-22 08:10 | NUR ---
Diprivan started at 10 mcgs on the pump.
--- NOTE | 2020-01-22 08:10 | NUR ---
DIPRIVAN AT [employer]MCG IS STARTED, AND WITNESSED WITH MARK PRO.
[2020-01-22] MEDS ORDERED: PROPOFOL DRIP 100 ML IV ONE (08:27)
--- NOTE | 2020-01-22 09:30 | NUR ---
Pt continues to have myoclonic seizure activity. Also drools alot. HOB up and oral care done. Eyes open but does not respond to instructions.
[2020-01-22] MEDS: levETIRAcetam 500 MG in NS 100 ML IV SCH ×2 (10:35→21:35)
--- NOTE | 2020-01-22 11:32 | NUR ---
Dr. Yanes neurology in to see pt. Orders left. He would like to start a vesed drip and stop ativan. Orders left. Pt continues to have seizure activity. Sarah given.
[2020-01-22] MEDS ORDERED: LORazepam 2 MG/ML VIAL IVP PRN (11:45)
[2020-01-22] MEDS ORDERED: ONDANSETRON HCL 4 MG/2 ML VIAL IVP PRN (11:45)
[2020-01-22] MEDS ORDERED: MIDAZOLAM HCL IN 0.9 % NACL/PF 50 ML IV PRN ×2 (11:45)
[2020-01-22] MEDS ORDERED: traMADol HCL HCL 50 MG TABLET (ULTRAM) GT PRN ×3 (11:45→12:45)
[2020-01-22] MEDS ORDERED: ALBUTEROL MDI INHALATION 8 GM INH INH PRN ×2 (11:45)
[2020-01-22] MEDS ORDERED: GLUCOSE 15 GM GEL (in 37.5 GM TUBE) PO PRN (12:00)
[2020-01-22] MEDS ORDERED: DEXTROSE 50%-WATER 50 ML DISP.SYRIN IVP PRN (12:00)
[2020-01-22] MEDS ORDERED: D5W 1,000 ML IV PRN (12:00)
--- NOTE | 2020-01-22 12:10 | NUR ---
CONSULT CARDIO. CONSULTING MD: DR. Marcio VILLAGOMEZ DIALED: [phone] SPOKE TO: FERNANDEZ ORDERED BY: DR. Kassidy VILLAGOMEZ
[2020-01-22] MEDS ORDERED: ALBUTEROL SULFATE 0.083% 2.5 MG/3 ML VIAL.NEB INH PRN (13:00)
[2020-01-22] MEDS: GLYCOPYRROLATE 1 MG TABLET GT SCH ×2 (15:33→21:34)
[2020-01-22] MEDS: AZTREONAM 1 GM in NS 50 ML IV SCH ×2 (15:33→21:36)
--- NOTE | 2020-01-22 15:39 | NUR ---
SCD's placed. CHG bath done, repositioned in bed with pillow support. Pt has a lot of secretions and needs frequent suctioning. HOB up. NG tube inserted for tube feeding that is ordered. Saline lock removed to right arm, occluded. Pt tolerating 80% 02 on vent. SR on monitor rate 60's. Seizures have not been noted the past hour. Will continue to monitor.
--- NOTE | 2020-01-22 15:40 | NUR ---
Witnessed Versed titration to 2 mg/hr.
[2020-01-22] MEDS: IPRATROPIUM BROM 0.5 MG/2.5 ML VIAL.NEB (ATROVENT) INH SCH ×3 (16:07→23:12)
--- NOTE | 2020-01-22 19:30 | NUR ---
Report given to oncoming shift to assume care of the patient. No seizure activity noted this afternoon with Versed at 2mg/hr.
--- NOTE | 2020-01-22 19:30 | NUR ---
Pt unresponsive with eyes open, pt blinks when light shined in eyes, Bilat pupils 2 mm with brisk response. Mouth suction and oral care provided. NGT secure, placement verified with air bolus auscultation. Pt Qfbnj-ya-Lywt with settings: A/C, R 15, Vt 500, PEEP 5, FiO2 80%, respirations even and non-labored. SPO2 98%. Versed drip infusing at 2 mg/hr to patent and secure PIV Left wrist. NS at 70 mL/hr to patent and secure PIV LAC. F/C patent and secure draining yellow/turbid urine. Bilat SCDs in place. Addendum: 01/23/20 at 0332 by Oseas Patel RN No seizure activity noted. Addendum: 01/23/20 at 0437 by Oseas Patel RN Error: No PIV access to LAC. NS at 70 mL/hr to patent and secure PIV LFA.
--- NOTE | 2020-01-22 20:25 | NUR ---
HR 58, B/P 107/61, SPO2 99%. Versed drip rate decreased to 1 mg/hr. Addendum: 01/23/20 at 0331 by Oseas Patel RN No seizure activity noted.
[2020-01-22] MEDS ORDERED: [UNRECOGNIZED DRUG - OTHER] SQ SCH (21:00)
[2020-01-22] MEDS ORDERED: INSULIN GLARGINE 100 UNITS/ML 10 ML VIAL SUBCUT SCH (21:00)
[2020-01-22] MEDS: CARVEDILOL 6.25 MG TABLET (COREG) PO SCH (21:00)
[2020-01-22] MEDS ORDERED: INSULIN GLARGINE HUM REC ANLOG 35 UNIT SQ SCH (21:00)
--- NOTE | 2020-01-22 21:28 | NUR ---
FiO2 decreased to 65% per RT.
[2020-01-22] MEDS: ASCORBIC ACID 500 MG TABLET GT SCH (21:34)
[2020-01-22] MEDS: SENNOSIDES 8.6 MG TABLET GT SCH (21:34)
[2020-01-22] MEDS: metroNIDAZOLE 500 mg/NS 100 ML IV SCH (21:36)
--- NOTE | 2020-01-22 22:33 | NUR ---
Called [facility] ([phone]) to clarify order for Lantus, spoke with Arden. Medication on JUL is for Insulin Glargine (Kwikpen U-100) 35 Units and dose on JUL is "None." Arden states that she will correct entry as Lantus 35 Units.
--- NOTE | 2020-01-22 23:00 | NUR ---
HR 57, B/P 87/42, FiO2 100%. No seizure activity noted. Versed drip rate decreased to 0.5 mg/hr.
[2020-01-22] MEDS: INSULIN GLARGINE 100 UNITS/ML 10 ML VIAL SUBCUT SCH (23:30)
[2020-01-23] VITALS (31 sets, daily range): BP systolic 101–136
--- NOTE | 2020-01-23 02:00 | NUR ---
Pt resting quietly with eyes open. No seizure activity noted. VSS.
[2020-01-23] MEDS: IPRATROPIUM BROM 0.5 MG/2.5 ML VIAL.NEB (ATROVENT) INH SCH ×6 (03:30→23:53)
[2020-01-23 06:36] LABS: BASOPHILS % (AUTO) 0.2 % (0.0-2.0); HEMATOCRIT 27.3 % (36-48); LYMPHOCYTES # (AUTO) 1.6 K/uL (1.0-5.5); LYMPHOCYTES % (AUTO) 11.8 % (20.5-51.5); MEAN CORPUSCULAR HEMOGLOBIN 29 pg (27-31); MEAN CORPUSCULAR HGB CONC 33 % (32-36); MEAN CORPUSCULAR VOLUME 89 fL (79.0-98.0); MONOCYTES # (AUTO) 0.8 K/uL (0.0-1.0); MONOCYTES % (AUTO) 5.6 % (1.7-9.3); NEUTROPHILS # (AUTO) 11.3 K/uL (1.8-7.7); NEUTROPHILS % (AUTO) 82.4 % (40.0-70.0); PLATELET COUNT (AUTO) 120 K/uL (130-430); RED BLOOD CELL COUNT(AUTO) 3.07 MIL/uL (4.2-6.2); RED CELL DISTRIBUTION WIDTH 13.7 % (9.0-15.0); WHITE BLOOD COUNT (AUTO) 13.7 K/uL (4.8-10.8)
[2020-01-23] MEDS: AZTREONAM 1 GM in NS 50 ML IV SCH ×3 (06:36→23:17)
[2020-01-23 06:45] LABS: CALCIUM 11.4 mg/dL (8.4-11.0); CREATININE 1.03 mg/dL (0.55-1.30); POTASSIUM 3.7 mmol/L (3.5-5.1)
--- NOTE | 2020-01-23 07:30 | NUR ---
Report received from MARK Stearns for continuation of care.
--- NOTE | 2020-01-23 07:30 | NUR ---
Pt resting quietly, no seizure activity noted. VSS. Pt report given to oncoming shift.
--- NOTE | 2020-01-23 07:44 | NUR ---
Dr. Lange states she wants versed drip at 1mg.
[2020-01-23] MEDS: ASCORBIC ACID 500 MG TABLET GT SCH ×2 (08:21→21:59)
[2020-01-23] MEDS: CARVEDILOL 6.25 MG TABLET (COREG) PO SCH ×2 (08:22→21:00)
[2020-01-23] MEDS: GLYCOPYRROLATE 1 MG TABLET GT SCH ×3 (08:23→21:59)
[2020-01-23] MEDS: ASPIRIN 81 MG TAB.CHEW PO SCH (08:23)
[2020-01-23] MEDS: MULTIVITS,CA,MINERALS/IRON/FA 1 TABLET GT SCH (08:24)
[2020-01-23] MEDS: MAGNESIUM OXIDE 400 MG TABLET GT SCH (08:24)
[2020-01-23] MEDS: LANSOPRAZOLE 30 MG CAPSULE.DR GT SCH (08:24)
[2020-01-23] MEDS: ATORVASTATIN 20 MG TABLET PO SCH (08:25)
[2020-01-23] MEDS: levETIRAcetam 500 MG in NS 100 ML IV SCH ×2 (08:26→22:00)
[2020-01-23] MEDS: metroNIDAZOLE 500 mg/NS 100 ML IV SCH ×2 (08:26→21:59)
--- NOTE | 2020-01-23 10:35 | NUR ---
WOUND EVALUATION: Wound Consult received from Dr. Timothy Funez. Thank you Dr. Funez for the consult. Patient received in a [place] Bed with an Atmos-Air 9000 mattress, obtunded. Patient is unable to turn in bed independently. Torey Score is a 9. Past Medical History: Diabetes Mellitus, Chronic Respiratory Failure, chronic pain, history of Larynx Neoplasm, Tracheostomy. Recent Labs: WBC 13.7, RBC 3.07, hemoglobin 9.0, hematocrit 27.3, platelets 120, chloride 111, BUN 27, creatinine 1.03, GFR 57, glucose 119, Alb 2.6, PTT 23.0. Microbiology: Blood culture results x 2 in progress. Urine culture results in progress. Tracheal Sputum results in progress. MRSA Screen results positive. Intrinsic factors that delay wound healing: Diabetes Mellitus, Chronic Respiratory Failure. Extrinsic factors that delay wound healing: Decreased mobility. Wound Assessment: 1. Sacral area: Stage IV pressure ulcer, present on admission. Wound bed has 100% dark dull red tissue (or 60% dark dull red tissue, 40% bone). No odor, no drainage. Radha-wound intact, has pink scar tissue, and maceration. Bone is palpable. Undermining present from 2-10 o'clock (0.6 cm at 3 o'clock, 1.0 cm at 6 o'clock, 0.5 cm at 9 o'clock). Wound measures 2.5 cm x 2.0 cm x 0.5 cm. Recommend: Cleanse wound with normal saline. Apply moisture barrier cream to radha-wound. Apply Venelex ointment to wound bed. Pack wound with 1/4 inch Iodoform packing strip. Cover with foam dressing. Perform wound care daily, and as needed for dressing soiling or dislodgement. Also recommend: Reposition patient side to side only every 2 hours with pillow support and off-load pressure areas with pillows for pressure re-distribution. Offload, elevate and float bilateral heels with one pillow lengthwise under each extremity at all times. Perform skin care and monitor skin integrity Q shift. Use moisture barrier cream on buttocks and other moisture susceptible areas QID and as needed for soiling. Place patient on a low air-loss mattress.
--- NOTE | 2020-01-23 10:39 | NUR ---
Dietitian Recommendations *Recommend: initiate EN support via NGT *Recommend: Vital AF 1.2 at 50ml/hr (goal rate), Tab BID, FWF 100ml Q6H via NGT Provides: 1600 kcal, 96gm protein and 1373 ml free water daily. Meets: 97% of estimated calorie needs and 100% of upper end of estimated protein needs. Please see Nutritional Assessment for details. FPC, RD
[2020-01-23] MEDS: NACL 0.9% 1,000 ML IV SCH (11:16)
[2020-01-23] MEDS ORDERED: BALSAM PERU/CASTOR OIL 60 GM OINT...G. TP ONE (14:00)
--- NOTE | 2020-01-23 17:50 | NUR ---
Dr. Funez (cardiology) rounded and asked to have Versed drip turned off as pts HR was in the 50's. Versed infusing at 1mg/hr. No seizures noted.
--- NOTE | 2020-01-23 19:09 | NUR ---
Report given to MARK Marie for continuation of care.
--- NOTE | 2020-01-23 19:13 | NUR ---
Opening note Report received from day RN. Assuming care now.
[2020-01-23] MEDS: INSULIN GLARGINE 100 UNITS/ML 10 ML VIAL SUBCUT SCH (21:00)
[2020-01-23] MEDS ORDERED: [UNRECOGNIZED DRUG - OTHER] SUBCUT SCH (21:00)
[2020-01-23] MEDS ORDERED: INSULIN GLARGINE HUM REC ANLOG 35 UNIT SUBCUT SCH (21:00)
[2020-01-23] MEDS: SENNOSIDES 8.6 MG TABLET GT SCH (21:59)
[2020-01-24] VITALS (35 sets, daily range): BP systolic 13–151
[2020-01-24] MEDS: NACL 0.9% 1,000 ML IV SCH ×2 (01:13→12:42)
[2020-01-24] MEDS: IPRATROPIUM BROM 0.5 MG/2.5 ML VIAL.NEB (ATROVENT) INH SCH ×5 (03:13→19:49)
[2020-01-24] MEDS: AZTREONAM 1 GM in NS 50 ML IV SCH ×3 (05:41→22:00)
[2020-01-24 05:58] LABS: BASOPHILS % (AUTO) 0.2 % (0.0-2.0); EOSINOPHILS % (AUTO) 0.4 % (0.0-4.0); HEMATOCRIT 28.6 % (36-48); HEMOGLOBIN 9.6 g/dL (12.0-16.0); LYMPHOCYTES # (AUTO) 1.5 K/uL (1.0-5.5); LYMPHOCYTES % (AUTO) 14.8 % (20.5-51.5); MEAN CORPUSCULAR HEMOGLOBIN 30 pg (27-31); MEAN CORPUSCULAR HGB CONC 34 % (32-36); MEAN CORPUSCULAR VOLUME 89 fL (79.0-98.0); MONOCYTES # (AUTO) 0.7 K/uL (0.0-1.0); MONOCYTES % (AUTO) 6.4 % (1.7-9.3); NEUTROPHILS # (AUTO) 8.2 K/uL (1.8-7.7); NEUTROPHILS % (AUTO) 78.2 % (40.0-70.0); PLATELET COUNT (AUTO) 123 K/uL (130-430); RED BLOOD CELL COUNT(AUTO) 3.22 MIL/uL (4.2-6.2); RED CELL DISTRIBUTION WIDTH 13.6 % (9.0-15.0); WHITE BLOOD COUNT (AUTO) 10.4 K/uL (4.8-10.8)
[2020-01-24 06:16] LABS: ALBUMIN 2.2 g/dL (3.4-4.8); C-REACTIVE PROTEIN QUANT 4.9 mg/dL (0-0.5); CALCIUM 10.4 mg/dL (8.4-11.0); CREATININE 0.96 mg/dL (0.55-1.30); POTASSIUM 3.1 mmol/L (3.5-5.1); TOTAL BILIRUBIN 0.3 mg/dL (0.0-1.0)
--- NOTE | 2020-01-24 07:15 | NUR ---
Opening Note Received report from endorsing RN. Pt obtunded responsive to tactile stimuli. Pt in no signs of pain or distress at this time. Trach to vent. IV sites intact, patent, no infiltration noted. Conti to gravity with yellow urine. HR 50s.
--- NOTE | 2020-01-24 07:30 | NUR ---
Pt noted with eyes open and looking up, pupils PERRL. Sclera red. No cough or gag noted when suctioning. Noted pink secretions from suctioning.
[2020-01-24] MEDS: levETIRAcetam 500 MG in NS 100 ML IV SCH ×2 (07:58→20:38)
[2020-01-24] MEDS: GLYCOPYRROLATE 1 MG TABLET GT SCH ×3 (07:58→20:38)
[2020-01-24] MEDS: ASPIRIN 81 MG TAB.CHEW PO SCH (07:59)
[2020-01-24] MEDS: MAGNESIUM OXIDE 400 MG TABLET GT SCH (07:59)
[2020-01-24] MEDS: LANSOPRAZOLE 30 MG CAPSULE.DR GT SCH (07:59)
[2020-01-24] MEDS: ASCORBIC ACID 500 MG TABLET GT SCH ×2 (07:59→20:38)
[2020-01-24] MEDS: MULTIVITS,CA,MINERALS/IRON/FA 1 TABLET GT SCH (07:59)
[2020-01-24] MEDS: ATORVASTATIN 20 MG TABLET PO SCH (07:59)
[2020-01-24] MEDS: CARVEDILOL 6.25 MG TABLET (COREG) PO SCH ×2 (08:00→20:37)
--- NOTE | 2020-01-24 08:00 | NUR ---
Tube Feeding Noted 60 ml residual. Increased tube feeding rate to 40 ml/hr.
[2020-01-24 08:08] LABS: ERYTHROCYTE SEDIMENTATION RATE 41 MM/HR (0-20)
[2020-01-24] MEDS: metroNIDAZOLE 500 mg/NS 100 ML IV SCH ×2 (09:48→20:38)
[2020-01-24] MEDS ORDERED: INSULIN GLARGINE 100 UNITS/ML 10 ML VIAL SUBCUT SCH (10:06)
[2020-01-24] MEDS: BALSAM PERU/CASTOR OIL 60 GM OINT...G. TP SCH (11:31)
--- NOTE | 2020-01-24 12:00 | NUR ---
Tube Feeding Patient noted with no residuals. Increased tube feeding to 50 ml/hr goal rate.
[2020-01-24] MEDS ORDERED: POTASSIUM CHLORIDE 20 MEQ in NS 250 ML IV ONE (13:30)
--- NOTE | 2020-01-24 13:45 | NUR ---
Dr. Funez rounding on pt. New orders made.
--- NOTE | 2020-01-24 13:50 | NUR ---
Called Dr. Palacios with a consult,spoke with Clara from doctors office
--- NOTE | 2020-01-24 13:50 | NUR ---
New orders for PEG placement. Attempted calling for consent to conservators Sarkis Aponte and Krystal Winslow. No answer, left message.
--- NOTE | 2020-01-24 14:35 | NUR ---
Attempted calling for consent to conservators Sarkis Aponte and Krystal Winslow. No answer, left message.
--- NOTE | 2020-01-24 15:45 | NUR ---
Dr. Lange roundluis on pt. Made aware of pt's CXR. New orders for XR tomorrow and states possibly replacing trach if available and bronchoscopy.
--- NOTE | 2020-01-24 15:50 | NUR ---
Attempted calling for consent for PEG and bronchoscopy to conservators Sarkis Aponte and Krystal Winslow. No answer, left message.
--- NOTE | 2020-01-24 15:55 | NUR ---
RT NOTED RT director, Slick notified Dr Lange that portex 6XLT is unavailable
--- NOTE | 2020-01-24 16:45 | NUR ---
Regarding conservatorship Conservator Sarkis Aponte returned call. Informed Sarkis regarding procedures ordered by physicians for tomorrow such as bronchoscopy and PEG placement. Sarkis states he "was not granted permissions to make medical decisions" and suggests if emergent to have physicians signs for medical necessity. Otherwise, "documentation must be made regarding pt status that can be brought to court for gymnastic teacher to determine medical decision making," per Sarkis. Phone number: [phone] Fax number for Sarkis: [phone]
--- NOTE | 2020-01-24 16:50 | NUR ---
Dr. Palacios called unit. Informed Dr. Palacios regarding situation with consent for procedure. Dr. Palacios states to continue regimen for now.
--- NOTE | 2020-01-24 16:52 | NUR ---
HIGH ALERT NOTE: Called Dr. Tripathi back identified within the medical roster to verify physician authenticity.
--- NOTE | 2020-01-24 19:21 | NUR ---
Endorsed plan of care to oncoming RN.
[2020-01-24] MEDS: SENNOSIDES 8.6 MG TABLET GT SCH (20:38)
[2020-01-24] MEDS: INSULIN GLARGINE 100 UNITS/ML 10 ML VIAL SUBCUT SCH (21:00)
[2020-01-25] VITALS (30 sets, daily range): BP systolic 79–157
[2020-01-25] MEDS: NACL 0.9% 1,000 ML IV SCH ×3 (04:18→22:03)
[2020-01-25 05:42] LABS: BASOPHILS % (AUTO) 0.4 % (0.0-2.0); EOSINOPHILS # (AUTO) 0.1 K/uL (0.0-0.4); EOSINOPHILS % (AUTO) 0.6 % (0.0-4.0); HEMATOCRIT 31.4 % (36-48); HEMOGLOBIN 10.5 g/dL (12.0-16.0); LYMPHOCYTES # (AUTO) 1.8 K/uL (1.0-5.5); LYMPHOCYTES % (AUTO) 20.9 % (20.5-51.5); MEAN CORPUSCULAR HEMOGLOBIN 30 pg (27-31); MEAN CORPUSCULAR HGB CONC 34 % (32-36); MEAN CORPUSCULAR VOLUME 89 fL (79.0-98.0); MONOCYTES # (AUTO) 0.5 K/uL (0.0-1.0); MONOCYTES % (AUTO) 6.4 % (1.7-9.3); NEUTROPHILS # (AUTO) 6.1 K/uL (1.8-7.7); NEUTROPHILS % (AUTO) 71.7 % (40.0-70.0); PLATELET COUNT (AUTO) 130 K/uL (130-430); RED BLOOD CELL COUNT(AUTO) 3.53 MIL/uL (4.2-6.2); RED CELL DISTRIBUTION WIDTH 13.7 % (9.0-15.0); WHITE BLOOD COUNT (AUTO) 8.5 K/uL (4.8-10.8)
[2020-01-25 05:51] LABS: C-REACTIVE PROTEIN QUANT 4.1 mg/dL (0-0.5); CALCIUM 9.2 mg/dL (8.4-11.0); CREATININE 0.95 mg/dL (0.55-1.30); POTASSIUM 3.4 mmol/L (3.5-5.1)
[2020-01-25] MEDS: AZTREONAM 1 GM in NS 50 ML IV SCH ×3 (06:12→21:14)
--- NOTE | 2020-01-25 07:30 | NUR ---
Opening note Patient report received via SBAR from endorsing RN
[2020-01-25] MEDS: IPRATROPIUM BROM 0.5 MG/2.5 ML VIAL.NEB (ATROVENT) INH SCH ×5 (07:44→23:30)
[2020-01-25] MEDS: levETIRAcetam 500 MG in NS 100 ML IV SCH ×2 (07:59→20:37)
[2020-01-25] MEDS: BALSAM PERU/CASTOR OIL 60 GM OINT...G. TP SCH (08:00)
--- NOTE | 2020-01-25 08:00 | NUR ---
Round Dr. Tripathi in to see patient, physician indicated that PEG placement is not a medical necessity at this time.
[2020-01-25] MEDS: metroNIDAZOLE 500 mg/NS 100 ML IV SCH ×2 (08:09→20:37)
[2020-01-25] MEDS: ASCORBIC ACID 500 MG TABLET GT SCH ×2 (08:09→20:34)
[2020-01-25] MEDS: LANSOPRAZOLE 30 MG CAPSULE.DR GT SCH (08:09)
[2020-01-25] MEDS: MAGNESIUM OXIDE 400 MG TABLET GT SCH (08:09)
[2020-01-25] MEDS: MULTIVITS,CA,MINERALS/IRON/FA 1 TABLET GT SCH (08:09)
[2020-01-25] MEDS: ASPIRIN 81 MG TAB.CHEW PO SCH (08:09)
[2020-01-25] MEDS: ATORVASTATIN 20 MG TABLET PO SCH (08:09)
[2020-01-25] MEDS: GLYCOPYRROLATE 1 MG TABLET GT SCH ×3 (08:09→20:35)
[2020-01-25] MEDS: CARVEDILOL 6.25 MG TABLET (COREG) PO SCH ×2 (08:10→20:35)
[2020-01-25] MEDS ORDERED: CRANBERRY FRUIT 425 MG GT SCH (09:00)
[2020-01-25 09:44] LABS: ERYTHROCYTE SEDIMENTATION RATE 35 MM/HR (0-20)
--- NOTE | 2020-01-25 10:00 | NUR ---
ROUND Dr. Lange in to see patient, no new orders
[2020-01-25] MEDS: INSULIN REGULAR, HUMAN 100 UNITS/ML, 10 ML VIAL (humuLIN R) SUBCUT PRN ×2 (12:06→17:52)
--- NOTE | 2020-01-25 13:00 | NUR ---
Nursing Note Patient repositioned in bed, patient given oral care
--- NOTE | 2020-01-25 15:00 | NUR ---
Nursing Note Patient's wound care performed, patient repositioned in bed
[2020-01-25] MEDS ORDERED: POTASSIUM CHLORIDE 20 MEQ/PKT PACKET NG ONE (17:45)
--- NOTE | 2020-01-25 17:50 | NUR ---
ROUND Dr. Funez in to see patient, patient to be transferred to Telemetry. Patient being monitored on Tele status
--- NOTE | 2020-01-25 19:20 | NUR ---
Closing Note Patient report given via SBAR to nightshift RN
--- NOTE | 2020-01-25 19:30 | NUR ---
PM ASSESSMENT REPORT RECEIVED FROM TONEY FLORES. PT RECEIVED IN BED WITH EYES CLOSED, RESPONDING TO TACTILE STIMULATION. VSS, NO S/S OF ACUTE DISTRESS NOTED. PT TRACH TO VENT, SETTINGS: AC 16, TV 500, FIO2 40%, PEEP 5. RFA 22G INFUSING NS @ 75 CC/HR. R DOMOE NGT RUNNING VITAL AF @ 50 CC/HR. GARRETT CATH DRAINING URINE TO GRAVITY. SCDS IN PLACE. PT IS BEING MONITORED ON TELEMETRY STATUS UNTIL BED BECOMES AVAILABLE ON THE FLOOR. HOB ELEVATED, BED IN LOWEST POSITION, CALL LIGHT IN REACH. WILL CONTINUE TO MONITOR PT. Addendum: 01/26/20 at 0434 by Nela Meadows RN VENT SETTINGS: AC 15
[2020-01-25] MEDS: SENNOSIDES 8.6 MG TABLET GT SCH (20:34)
[2020-01-25] MEDS: INSULIN GLARGINE 100 UNITS/ML 10 ML VIAL SUBCUT SCH (20:34)
[2020-01-26] VITALS (10 sets, daily range): BP systolic 112–154
[2020-01-26] MEDS: INSULIN REGULAR, HUMAN 100 UNITS/ML, 10 ML VIAL (humuLIN R) SUBCUT PRN ×4 (04:54→23:13)
[2020-01-26] MEDS: AZTREONAM 1 GM in NS 50 ML IV SCH ×3 (04:54→21:50)
--- NOTE | 2020-01-26 05:00 | NUR ---
PT TRANSFERRED PT TRANSFERRED VIA BED TO TELE RM 111 A IN STABLE CONDITION. REPORT GIVEN TO AVINASH FLORES AT BEDSIDE. ALL BELONGINGS AND MEDICATIONS TRANSFERRED WITH PT. ALL CARE ENDORSED.
--- NOTE | 2020-01-26 05:05 | NUR ---
ADMISSION RECEIVED PATIENT FROM ICU VIA BED, NON VERBAL, ON MECHANICAL VENTILATOR, VITALS STABLE, NO SIGNS OF ANY PAIN NOTED. ASSESSMENT DONE AND DOCUMENTED. SEE FLOWSHEET. NEEDS ATTENDED TO. SAFETY MEASURES IN PLACED. WILL CONTINUE TO MONITOR.
[2020-01-26 05:39] LABS: BASOPHILS # (AUTO) 0.1 K/uL (0.0-0.2); HEMOGLOBIN 10.2 g/dL (12.0-16.0); LYMPHOCYTES # (AUTO) 1.8 K/uL (1.0-5.5); WHITE BLOOD COUNT (AUTO) 10.6 K/uL (4.8-10.8)
[2020-01-26 05:49] LABS: BASOPHILS % (AUTO) 0.5 % (0.0-2.0); EOSINOPHILS # (AUTO) 0.4 K/uL (0.0-0.4); EOSINOPHILS % (AUTO) 3.6 % (0.0-4.0); HEMATOCRIT 29.6 % (36-48); LYMPHOCYTES % (AUTO) 16.7 % (20.5-51.5); MEAN CORPUSCULAR HEMOGLOBIN 30 pg (27-31); MEAN CORPUSCULAR HGB CONC 35 % (32-36); MEAN CORPUSCULAR VOLUME 88 fL (79.0-98.0); MONOCYTES # (AUTO) 0.6 K/uL (0.0-1.0); MONOCYTES % (AUTO) 5.2 % (1.7-9.3); NEUTROPHILS # (AUTO) 7.8 K/uL (1.8-7.7); PLATELET COUNT (AUTO) 176 K/uL (130-430); RED BLOOD CELL COUNT(AUTO) 3.36 MIL/uL (4.2-6.2); RED CELL DISTRIBUTION WIDTH 13.5 % (9.0-15.0)
[2020-01-26 05:51] LABS: CALCIUM 8.8 mg/dL (8.4-11.0); CREATININE 0.79 mg/dL (0.55-1.30); POTASSIUM 3.6 mmol/L (3.5-5.1); TOTAL BILIRUBIN 0.2 mg/dL (0.0-1.0)
[2020-01-26 05:52] LABS: ALBUMIN 1.9 g/dL (3.4-4.8); C-REACTIVE PROTEIN QUANT 2.7 mg/dL (0-0.5)
--- NOTE | 2020-01-26 06:50 | NUR ---
CLOSING NOTES PATENT RESTING IN BED WITH EYES CLOSED, VITALS STABLE, NO SOB NOR PAIN AND DISCOMFORT NOTED. ALL NEEDS ATTENDED TO. SAFETY MEASURES MAINTAINED. WILL CONTINUE TO MONITOR.
[2020-01-26] MEDS: IPRATROPIUM BROM 0.5 MG/2.5 ML VIAL.NEB (ATROVENT) INH SCH ×5 (07:16→22:38)
[2020-01-26] MEDS: BALSAM PERU/CASTOR OIL 60 GM OINT...G. TP SCH (09:00)
[2020-01-26 09:04] LABS: ERYTHROCYTE SEDIMENTATION RATE 28 MM/HR (0-20)
[2020-01-26] MEDS: metroNIDAZOLE 500 mg/NS 100 ML IV SCH ×2 (09:16→21:20)
[2020-01-26] MEDS: ATORVASTATIN 20 MG TABLET PO SCH (09:17)
[2020-01-26] MEDS: LANSOPRAZOLE 30 MG CAPSULE.DR GT SCH (09:17)
[2020-01-26] MEDS: MAGNESIUM OXIDE 400 MG TABLET GT SCH (09:17)
[2020-01-26] MEDS: ASPIRIN 81 MG TAB.CHEW PO SCH (09:17)
[2020-01-26] MEDS: MULTIVITS,CA,MINERALS/IRON/FA 1 TABLET GT SCH (09:17)
[2020-01-26] MEDS: levETIRAcetam 500 MG in NS 100 ML IV SCH ×2 (09:17→21:20)
[2020-01-26] MEDS: GLYCOPYRROLATE 1 MG TABLET GT SCH ×3 (09:17→21:19)
[2020-01-26] MEDS: ASCORBIC ACID 500 MG TABLET GT SCH ×2 (09:17→21:19)
[2020-01-26] MEDS: CARVEDILOL 6.25 MG TABLET (COREG) PO SCH ×2 (09:18→21:35)
--- NOTE | 2020-01-26 09:25 | NUR ---
Nutrition F/U Admitting Diagnosis Sepsis Reviewed Pertinent Medical/Surgical Hx Medical Record Other Medical History Comment: Pt presents w/: Sepsi, Septic shock, Chronic Respiratory Failure, Leukocytosis, Anemia, CKD, Hyperglycemia, Hypercalcemia, Transaminitis, UTI, DM, Hx of Laryngeal Neoplasm, S/P trach per MD notes. SARS-COV-2 Ag Rapid Negative 01/20 COVID-19 PCR Negative 01/21 Subjective Information Pt s/p trach, remains on vent per MD note. Transferred to Room 111T-A this morning for stable condition per RN note. RD unable to reach RN d/t RN inside isolation room per nursing station. Per GI consult note (01/24), pt continues to receive TF via NGT and is a/w for consent for PEG placement as pt does not have event marketing representative to make medical decisions for PEG placement. Per RN note and EMR, pt is receiving Vital AF 1.2 at 50 ml via NGT, w/ Tab BID, FWF at 100 ml w/ minimal residuals -- unable to verify FWF frequency at this time. MD note reported pt tolerating TF this morning. Current EN regimen remains adequate and appropriate to meet pt's needs. Current Diet Order/Nutrition Support Vital AF 1.2 at 50 ml/hr, w/ Tab BID, FWF at 100 ml. Pertinent Medications Lipitor, Zinc, Theragran-M, Mag-oxide, VIT C, Zofran, Senna, Insulin Pertinent Labs 01/25 Na 135 L, K 3.6WNL, BG 181H, BUN 21H (trending down), CRE 0.79WNL Skin Integrity Comment: Torey scale: 13. Per Manufacturing Quality Inspector's note (01/22): Stage IV Pressure Ulcer on Sacrum. Non-pitting edema at Right Upper Extremities per RN note Current % PO N/A, on NPO Estimated Energy Expenditure (kcals/day) 1654 kcal (PSU for critical illness on vent) Estimated Protein Required (g/day) 64-96gm/day (1-1.5 gm/kg IBW for Renal Dz predialysis and sepsis) Estimated Fluid Required (l/day) per MD (Renal Dz) Problem/Etiology/Signs/Symptoms Increased nutrient needs r/t metabolic demands AEB estimated calories and protein for sepsis. *improving via TF Altered nutrition-related labs r/t endocrine dysfunction AEB elevated BG and POC BG lab values and Hx of DM. *ongoing Expected Outcomes/Goals Monitor initiation of nutrition support, EN tolerance and intake w/ goal of pt meeting more than 75% of estimated nutritional needs, labs trending WNL, normal GI function, skin integrity/wt maintenance. Dietitian Recommendations *Recommend continue Vital AF 1.2 at 50ml/hr (goal rate), Tab BID, FWF 100ml Q6H via NGT Provides: 1600 kcal, 96gm protein and 1373 ml free water daily. Meets: 97% of estimated calorie needs and 100% of upper end of estimated protein needs. Follow Up High Risk: F/U in 2-3days Addendum: 01/26/20 at [address] CORRECTION: Dietitian Recommendations *Recommend Vital AF 1.2 at 50ml/hr (goal rate), Tab BID, FWF 100ml Q6H via NGT Provides: 1600 kcal, 96gm protein and 1373 ml free water daily. Meets: 97% of estimated calorie needs and 100% of upper end of estimated protein needs.
--- NOTE | 2020-01-26 09:55 | NUR ---
Dietitian Recommendations *Recommend continue Vital AF 1.2 at 50ml/hr (goal rate), Tab BID, FWF 100ml Q6H via NGT Provides: 1600 kcal, 96gm protein and 1373 ml free water daily. Meets: 97% of estimated calorie needs and 100% of upper end of estimated protein needs. Please see Nutrition F/U for details. SWETHA BARRAZA Addendum: 01/26/20 at [address] CORRECTION: Dietitian Recommendations *Recommend Vital AF 1.2 at 50ml/hr (goal rate), Tab BID, FWF 100ml Q6H via NGT Provides: 1600 kcal, 96gm protein and 1373 ml free water daily. Meets: 97% of estimated calorie needs and 100% of upper end of estimated protein needs. SWETHA BARRAZA
--- NOTE | 2020-01-26 11:00 | NUR ---
Patient is in bed resting. Patient does not display any signs and symptoms of pain, distress, or shortness of breath. Patient is on a vent Peep 4, FiO2 40%, Peep 4, Tidal volume 497. AM care needs met. ABG values given to Dr. Lange. Consent for PEG tube provided by Krystal Winslow. Witness by two nurses. Bed in low position. Two side rails up. Will continue to monitor patient throughout shift.
--- NOTE | 2020-01-26 12:32 | NUR ---
NOTE: The pt has public guardian at [facility] . Address: [address] [place], [place] [address] Sarkis Aponte, case monitor # [phone] and Krystal Winslow, nurse conservator # [phone]. Addendum: 01/26/20 at 1244 by Dane Raines RN late entry: s/w dr. Tripathi this am, he plans for PEG placement and will need consent signing from conservator. MARK Casarez called Krystal and obtained the consent. Dr. Tripathi made aware. Addendum: 01/26/20 at 1245 by Dane Raines RN Amended: Links added.
[2020-01-26] MEDS: NACL 0.9% 1,000 ML IV SCH ×2 (19:01→21:32)
--- NOTE | 2020-01-26 19:15 | NUR ---
change of shift.pt.presents isolation status;contact:mdro urine.pt.presents trach connection;vent;vent settings;tv;500,fio-2%;40%,a/c;15,peep;5.pt.presents blunt affect;pt.presents iv fluids access;location lt.antecubital.pt.presents valdovinos cath.urine content present. pt.presents ng-tube;rt.nares.ng-tube feed infusing.call light/telephone w/in access of the pt.
--- NOTE | 2020-01-26 20:00 | NUR ---
pt.assessed.v/s assessed values wnl.pt.presents trach;to vent;i have attended to the oral/trach care/suctioning.pt.presents valdovinos cath intact;patent iv fluids infusing.pt.presents ng-tube;rt.nares;intact;patent flushed w/out resistance.ng-tube feed infusing.i i have changed the ng-tube feed bottle;vital;1.2 @the rate;55ml/hr.pt.assessed for cleanliness.pt.repositioned.general status stable.respiratory status stable;02-sat%=99%.call light/telephone placed w/in access of the pt.
--- NOTE | 2020-01-26 21:00 | NUR ---
2100pmedications administered via the ng-tube;RT.NARES.FLUSHED W/OUT RESISTANCE.PT TOLeRaTIng the NG-TUBE FEED.RESiduAL SCANT;5ML.i have administered;uma/glenny ivpb/ Addendum: 01/27/20 at 0152 by Elier Carreon RN i have changed the iv fluids bag.
[2020-01-26] MEDS: SENNOSIDES 8.6 MG TABLET GT SCH (21:19)
[2020-01-26] MEDS: INSULIN GLARGINE 100 UNITS/ML 10 ML VIAL SUBCUT SCH (21:44)
--- NOTE | 2020-01-26 22:00 | NUR ---
pt.assessed.i have attended to the oral/trach care/suctioning.pt.assessed for cleanliness.pt.repositioned.per flacc pain mgx pt.absent facial grimaces/body posturing.iv access intact;patent iv fluids infusing.i have administered azactam ivpb 220op dose.valdovinos cath intact urine content present.general status stable.respiratory status stable;02-sat%=99%.call light/telephone placed w/in access of the pt.
--- NOTE | 2020-01-27 | NUR ---
pt.assessed.v/s assessed values w/in wnl.per flacc pain mgx pt. absent facial grimaces/body posturing.i have attended to the oral/trach care/suctioning.pt.assessed for cleanliness.pt.repositioned.iv access intact;patent iv fluids infusing.valdovinos cath intact;patent urine content present.general status stable.repiratory status stable 02-sat%=99%.call light/telephone placed w/in access of the pt,
[2020-01-27 00:30] VITALS: BP_SYST 120
--- NOTE | 2020-01-27 02:00 | NUR ---
pt.assessed.i have attended to the oral/trach care/suctioning.pt.assessed for cleanliness.pt.repositioned.ng-tube intact;patent ng-tube feed infusing.valdovinos cath intact;patent urine content present.iv access intact;patent iv fluids infusing.per flacc pain mgx pt.absent facial grimaces/body posturing.general status stable.respiratory status stable;02-sat%=99%.call light/telephone placed w/in access of the pt.
[2020-01-27] MEDS: IPRATROPIUM BROM 0.5 MG/2.5 ML VIAL.NEB (ATROVENT) INH SCH ×6 (03:19→23:06)
--- NOTE | 2020-01-27 04:00 | NUR ---
pt.assessed.i have attended to the oral/trach care/suctioning.ng-tube intact;patent ng-tube feed infusing.iv acces intact;patent iv fluids infusing. valdovinos cath intact;patent urine content present.pt.assessed for cleanliness.pt.repositioned.per flacc pain mgx pt.absent facial grimaces/body posturing.general status stable.respiratory status stable;02-sat%=99%.call light/telephone placed w/in access of the pt.
[2020-01-27] MEDS: AZTREONAM 1 GM in NS 50 ML IV SCH ×3 (05:00→22:54)
--- NOTE | 2020-01-27 06:10 | NUR ---
pt.assessed.pt.assessed for cleanliness.pt.cleaned/pt.repositioned.i have assessed the blood glucose;value;141mg/dl.iv access intact;patent iv;fluids infusing;i have administered azactam abx ivpb;0600a dose.i have attended to the wound care.i have attended to the oral/trach care/suctioning.o2-sat%=99%.call light/telephone placed w/in access of the pt.
[2020-01-27 06:45] LABS: BASOPHILS % (AUTO) 0.2 % (0.0-2.0); C-REACTIVE PROTEIN QUANT 2.8 mg/dL (0-0.5); CALCIUM 8.7 mg/dL (8.4-11.0); CREATININE 0.92 mg/dL (0.55-1.30); EOSINOPHILS % (AUTO) 0.3 % (0.0-4.0); HEMATOCRIT 28.6 % (36-48); HEMOGLOBIN 9.4 g/dL (12.0-16.0); LYMPHOCYTES # (AUTO) 1.9 K/uL (1.0-5.5); LYMPHOCYTES % (AUTO) 16.2 % (20.5-51.5); MEAN CORPUSCULAR HEMOGLOBIN 29 pg (27-31); MEAN CORPUSCULAR HGB CONC 33 % (32-36); MEAN CORPUSCULAR VOLUME 88 fL (79.0-98.0); MONOCYTES # (AUTO) 0.5 K/uL (0.0-1.0); MONOCYTES % (AUTO) 4.4 % (1.7-9.3); NEUTROPHILS % (AUTO) 78.9 % (40.0-70.0); PLATELET COUNT (AUTO) 169 K/uL (130-430); POTASSIUM 3.4 mmol/L (3.5-5.1); RED BLOOD CELL COUNT(AUTO) 3.24 MIL/uL (4.2-6.2); RED CELL DISTRIBUTION WIDTH 13.9 % (9.0-15.0); WHITE BLOOD COUNT (AUTO) 11.4 K/uL (4.8-10.8)
[2020-01-27 08:00] VITALS: BP_SYST 135
[2020-01-27 08:24] LABS: ERYTHROCYTE SEDIMENTATION RATE 28 MM/HR (0-20)
[2020-01-27] MEDS: levETIRAcetam 500 MG in NS 100 ML IV SCH ×2 (08:35→22:25)
[2020-01-27] MEDS: ATORVASTATIN 20 MG TABLET PO SCH (08:36)
[2020-01-27] MEDS: ASCORBIC ACID 500 MG TABLET GT SCH ×2 (08:36→22:24)
[2020-01-27] MEDS: metroNIDAZOLE 500 mg/NS 100 ML IV SCH ×2 (08:36→22:25)
[2020-01-27] MEDS: LANSOPRAZOLE 30 MG CAPSULE.DR GT SCH (08:37)
[2020-01-27] MEDS: MULTIVITS,CA,MINERALS/IRON/FA 1 TABLET GT SCH (08:37)
[2020-01-27] MEDS: ASPIRIN 81 MG TAB.CHEW PO SCH (08:37)
[2020-01-27] MEDS: MAGNESIUM OXIDE 400 MG TABLET GT SCH (08:37)
[2020-01-27] MEDS: CARVEDILOL 6.25 MG TABLET (COREG) PO SCH ×2 (08:38→22:36)
[2020-01-27] MEDS: BALSAM PERU/CASTOR OIL 60 GM OINT...G. TP SCH (08:38)
--- NOTE | 2020-01-27 09:50 | NUR ---
lying in bed, looked puffy, especially both arms, and bot feet. Non-verbal. continues with NGT feeding, and abx ivpb .
[2020-01-27] MEDS: GLYCOPYRROLATE 1 MG TABLET GT SCH ×3 (09:56→22:24)
[2020-01-27] MEDS: INSULIN REGULAR, HUMAN 100 UNITS/ML, 10 ML VIAL (humuLIN R) SUBCUT PRN ×2 (11:17→17:02)
[2020-01-27 12:57] VITALS: BP_SYST 118
[2020-01-27] MEDS ORDERED: POTASSIUM CHLORIDE 20 MEQ/PKT PACKET NG ONE (14:45)
[2020-01-27] MEDS ORDERED: POTASSIUM CHLORIDE 20 MEQ TAB.PRT.SR NG ONE (14:45)
[2020-01-27 17:10] VITALS: BP_SYST 120
--- NOTE | 2020-01-27 19:55 | NUR ---
OPENING NOTES Received report from MARK Abernathy. Patient resting in bed, nonverbal, breathing evenly and nonlabored on mechanical vent via trach. TV: 500, AC: 15, FiO2: 40%, Peep: 5. Patient has an NGT on the right nares, Vital AF1.2 running at 50mL/hr, patient tolerating it well. Patient has an IV on the left upper arm, IVF running, patent and benign, no s/s of infection or infiltration noted at this time. Patient has a Conti catheter, secured and draining by gravity, daily needs done per MARK Abernathy. Educated patient on plan of care, fall/safety/aspiration/seizure precautions, call light system, patient unable to state understanding due to cognitive limitations. Bed is locked, armed and at lowest position, will continue to monitor.
[2020-01-27 20:00] VITALS: BP_SYST 128
[2020-01-27] MEDS: SENNOSIDES 8.6 MG TABLET GT SCH (22:24)
[2020-01-27] MEDS: NACL 0.9% 1,000 ML IV SCH (22:26)
[2020-01-27 22:30] VITALS: BP_SYST 127
[2020-01-27] MEDS: INSULIN GLARGINE 100 UNITS/ML 10 ML VIAL SUBCUT SCH (22:32)
[2020-01-28] VITALS (7 sets, daily range): BP systolic 124–140
[2020-01-28] MEDS: IPRATROPIUM BROM 0.5 MG/2.5 ML VIAL.NEB (ATROVENT) INH SCH ×6 (03:52→23:06)
[2020-01-28] MEDS: AZTREONAM 1 GM in NS 50 ML IV SCH ×3 (05:31→21:23)
--- NOTE | 2020-01-28 06:30 | NUR ---
CLOSING NOTES Patient resting in bed, nonverbal, breathing evenly and nonlabored on mechanical vent via trach. NGT running, patient tolerating it well. IVF running, patient tolerating it well. Medications were given throughout the shift, patient tolerated them well. BS was checked on schedule and no coverage was needed both times. Hygiene care was done with MATERIAL MAN, sacral wound care done. Needs met throughout the shift. No s/s of distress at this time, no other needs at this time. Fall/safety/aspiration/seizure precautions, will endorse care to morning shift RN.
[2020-01-28 06:59] LABS: CALCIUM 8.6 mg/dL (8.4-11.0); CREATININE 0.77 mg/dL (0.55-1.30); POTASSIUM 3.7 mmol/L (3.5-5.1)
[2020-01-28 07:06] LABS: BASOPHILS % (AUTO) 0.4 % (0.0-2.0); EOSINOPHILS % (AUTO) 0.2 % (0.0-4.0); HEMOGLOBIN 9.2 g/dL (12.0-16.0); LYMPHOCYTES # (AUTO) 1.7 K/uL (1.0-5.5); LYMPHOCYTES % (AUTO) 14.5 % (20.5-51.5); MEAN CORPUSCULAR HEMOGLOBIN 29 pg (27-31); MEAN CORPUSCULAR HGB CONC 33 % (32-36); MEAN CORPUSCULAR VOLUME 88 fL (79.0-98.0); MONOCYTES # (AUTO) 0.5 K/uL (0.0-1.0); MONOCYTES % (AUTO) 4.1 % (1.7-9.3); NEUTROPHILS # (AUTO) 9.4 K/uL (1.8-7.7); NEUTROPHILS % (AUTO) 80.8 % (40.0-70.0); PLATELET COUNT (AUTO) 173 K/uL (130-430); RED BLOOD CELL COUNT(AUTO) 3.17 MIL/uL (4.2-6.2); RED CELL DISTRIBUTION WIDTH 13.7 % (9.0-15.0); WHITE BLOOD COUNT (AUTO) 11.7 K/uL (4.8-10.8)
[2020-01-28] MEDS: levETIRAcetam 500 MG in NS 100 ML IV SCH ×2 (08:29→20:47)
[2020-01-28] MEDS: metroNIDAZOLE 500 mg/NS 100 ML IV SCH ×2 (08:29→20:48)
[2020-01-28] MEDS: ATORVASTATIN 20 MG TABLET PO SCH (08:30)
[2020-01-28] MEDS: MAGNESIUM OXIDE 400 MG TABLET GT SCH (08:30)
[2020-01-28] MEDS: ASPIRIN 81 MG TAB.CHEW PO SCH (08:30)
[2020-01-28] MEDS: LANSOPRAZOLE 30 MG CAPSULE.DR GT SCH (08:30)
[2020-01-28] MEDS: ASCORBIC ACID 500 MG TABLET GT SCH ×2 (08:30→20:47)
[2020-01-28] MEDS: GLYCOPYRROLATE 1 MG TABLET GT SCH ×3 (08:30→20:47)
[2020-01-28] MEDS: MULTIVITS,CA,MINERALS/IRON/FA 1 TABLET GT SCH (08:30)
[2020-01-28] MEDS: CARVEDILOL 6.25 MG TABLET (COREG) PO SCH ×2 (08:31→20:49)
[2020-01-28] MEDS: BALSAM PERU/CASTOR OIL 60 GM OINT...G. TP SCH (08:32)
[2020-01-28] MEDS: NACL 0.9% 1,000 ML IV SCH (10:40)
--- NOTE | 2020-01-28 14:32 | NUR ---
GI MD DR IVERSON WAS CALLED, RE: TO INFORM THAT PEG CONSENT IS SIGNED. SPOKE TO ANAHY.
--- NOTE | 2020-01-28 14:46 | NUR ---
remains NPO with ng tube feed, on vent called GI and informed the physician of the consent already signed by conservator, on 01/26/2020, patient is scheduled for PEG placement by dr Bigg Palacios. NPO after midnite, and ivf d5 1/2 at 50cc per hour will be initiated, expected time to bead picker for GI lab at 0800 on 01/29/2020
[2020-01-28] MEDS: INSULIN REGULAR, HUMAN 100 UNITS/ML, 10 ML VIAL (humuLIN R) SUBCUT PRN (16:22)
[2020-01-28] MEDS: SENNOSIDES 8.6 MG TABLET GT SCH (20:47)
[2020-01-28] MEDS: INSULIN GLARGINE 100 UNITS/ML 10 ML VIAL SUBCUT SCH (21:00)
--- NOTE | 2020-01-28 21:40 | NUR ---
SPOKE WITH DR. IVERSON, CLARIFIED IVF ORDER. SAID TO DC CURRENT IVF NS @ 75 AT MIDNIGHT 01/29/20 AND TO START ORDERED D5 1/2 NS AT 50ML/HR AT MIDNIGHT. ALSO MADE AWARE THAT BS FOR 2100 WAS 129, NGT FEEDING WILL BE STOPPED AT MIDNIGHT, MD ORDERED TO HOLD THE 2099 SCHEDULED LANTUS AND TO CONTINUE CURRENT ACCUCHECK SCHEDULE AND TO GIVE REGULAR COVERAGE IF NEEDED.
--- NOTE | 2020-01-28 21:43 | NUR ---
SPOKE WITH Marcio SCHULTZ MD NOTIFIED THAT PATIENT'S HR DECREASED LOW 44. NOTIFIED THAT BP EARLIER WAS 130/51, HR 51 AT 1954, COREG WAS HELD FOR 2099 MED SCHEDULE. MD AWARE, NO NEW ORDERS.
[2020-01-29] MEDS: NACL 0.9% 1,000 ML IV SCH
--- NOTE | 2020-01-29 | NUR ---
NGT FEEDING STOPPED. NPO STATUS.
[2020-01-29 00:22] VITALS: BP_SYST 124
[2020-01-29] MEDS: D5/0.45 NS 1,000 ML IV SCH ×2 (00:45→20:00)
[2020-01-29] MEDS: IPRATROPIUM BROM 0.5 MG/2.5 ML VIAL.NEB (ATROVENT) INH SCH ×5 (03:40→19:43)
[2020-01-29] MEDS: AZTREONAM 1 GM in NS 50 ML IV SCH (05:50)
[2020-01-29 07:14] LABS: BASOPHILS # (AUTO) 0.1 K/uL (0.0-0.2); BASOPHILS % (AUTO) 0.6 % (0.0-2.0); EOSINOPHILS # (AUTO) 0.1 K/uL (0.0-0.4); HEMATOCRIT 29.7 % (36-48); HEMOGLOBIN 9.8 g/dL (12.0-16.0); LYMPHOCYTES # (AUTO) 2.3 K/uL (1.0-5.5); LYMPHOCYTES % (AUTO) 16.7 % (20.5-51.5); MEAN CORPUSCULAR HEMOGLOBIN 29 pg (27-31); MEAN CORPUSCULAR HGB CONC 33 % (32-36); MEAN CORPUSCULAR VOLUME 89 fL (79.0-98.0); MONOCYTES # (AUTO) 0.6 K/uL (0.0-1.0); MONOCYTES % (AUTO) 4.1 % (1.7-9.3); NEUTROPHILS % (AUTO) 77.6 % (40.0-70.0); PLATELET COUNT (AUTO) 157 K/uL (130-430); RED BLOOD CELL COUNT(AUTO) 3.33 MIL/uL (4.2-6.2); RED CELL DISTRIBUTION WIDTH 13.9 % (9.0-15.0); WHITE BLOOD COUNT (AUTO) 14.1 K/uL (4.8-10.8)
[2020-01-29 07:33] LABS: ALBUMIN 1.9 g/dL (3.4-4.8); C-REACTIVE PROTEIN QUANT 0.8 mg/dL (0-0.5); CALCIUM 9.3 mg/dL (8.4-11.0); CREATININE 0.8 mg/dL (0.55-1.30); POTASSIUM 3.8 mmol/L (3.5-5.1); TOTAL BILIRUBIN 0.2 mg/dL (0.0-1.0)
[2020-01-29 07:40] VITALS: BP_SYST 132
[2020-01-29] MEDS: ASCORBIC ACID 500 MG TABLET GT SCH ×2 (09:00→21:30)
[2020-01-29] MEDS: MULTIVITS,CA,MINERALS/IRON/FA 1 TABLET GT SCH (09:00)
[2020-01-29] MEDS: CARVEDILOL 6.25 MG TABLET (COREG) PO SCH ×2 (09:00→21:30)
[2020-01-29] MEDS: MAGNESIUM OXIDE 400 MG TABLET GT SCH (09:00)
[2020-01-29] MEDS: GLYCOPYRROLATE 1 MG TABLET GT SCH ×3 (09:00→21:30)
[2020-01-29] MEDS: LANSOPRAZOLE 30 MG CAPSULE.DR GT SCH (09:00)
[2020-01-29] MEDS: ASPIRIN 81 MG TAB.CHEW PO SCH (09:00)
[2020-01-29] MEDS: ATORVASTATIN 20 MG TABLET PO SCH (09:00)
[2020-01-29] MEDS: levETIRAcetam 500 MG in NS 100 ML IV SCH ×2 (09:05→22:00)
[2020-01-29] MEDS: BALSAM PERU/CASTOR OIL 60 GM OINT...G. TP SCH (09:08)
[2020-01-29 09:29] LABS: ERYTHROCYTE SEDIMENTATION RATE 13 MM/HR (0-20)
[2020-01-29] MEDS ORDERED: MIDAZOLAM HCL 5 MG/5 ML VIAL ONE (09:36)
[2020-01-29] MEDS ORDERED: fentaNYL CITRATE/PF 100 MCG/2 ML AMP ONE (09:36)
--- NOTE | 2020-01-29 10:05 | NUR ---
0971 -1000 STANDBY AT BEDSIDE FOR PROCEDURE. PT ON CURRENT VENT SETTINGS, AC 15, VT 500, PEEP +5, FIO2 40%. SPO2 95- 98%, HR 48-55. NO RESPIRATORY DISTRESS NOTED.
[2020-01-29] MEDS: FLUCONAZOLE 100 mg/ NS 50 ML IV SCH (12:10)
--- NOTE | 2020-01-29 12:18 | NUR ---
Nutrition F/U Admitting Diagnosis: Sepsis Medical History Comment: Pt presents w/: Sepsi, Septic shock, Chronic Respiratory Failure, Leukocytosis, Anemia, CKD, Hyperglycemia, Hypercalcemia, Transaminitis, UTI, DM, Hx of Laryngeal Neoplasm, S/P trach per MD notes. SARS-COV-2 Ag Rapid Negative 01/20 COVID-19 PCR Negative 01/21 Subjective Information Pt is aphasic, s/p trach, remains on vent per MD note. Pt is still in Room 111T-A this morning during RD rounds. Pt seen in bed, no EN infusing. Per RN Angella, PEG has been placed earlier at bedside and is a/w MD order to start EN support. Order to start EN was placed around 11am for Jevity 1.2. Per EMR review, sepsis has improved, pt had BM today 01/27 x3. 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 Pt may benefit from an EN formula w/ higher protein needs and modular Tab to aid in wound healing. Current Diet Order/Nutrition Support: Jevity 1.2 at 30ml/hr, FWF 100ml via GT 01/28 11am Pertinent Medications Lipitor, Zinc, Theragran-M, Mag-oxide, VIT C, Zofran, Senna, Insulin Pertinent Labs 01/28 Na 142 WNL, K 3.8WNL, BG 118H, BUN 27H (trending up), CRE 0.8WNL, WBC 14.1H, AST 55H Skin Integrity Comment: Torey scale: 11. Per Timber Management Assistant's note (01/22): Stage IV Pressure Ulcer on Sacrum. 2+ pitting edema to BUE and Bilateral foot per RN notes. Current % PO N/A, on NPO NEW Estimated Energy Expenditure (kcals/day) 1850 Kcal/day (MSJ x1.1 x1.2 for sepsis on vent) Estimated Protein Required (g/day) 64-96gm/day (1-1.5 gm/kg IBW for Renal Dz predialysis and sepsis) Estimated Fluid Required (l/day) per MD (Renal Dz) Problem/Etiology/Signs/Symptoms Increased nutrient needs r/t metabolic demands AEB estimated calories and protein for sepsis. *improving via TF Altered nutrition-related labs r/t endocrine dysfunction AEB elevated BG and POC BG lab values and Hx of DM. *ongoing Expected Outcomes/Goals Monitor EN tolerance and intake w/ goal of pt meeting more than 75% of estimated nutritional needs, labs trending WNL, normal GI function, skin integrity/wt maintenance. Dietitian Recommendations *Recommend Vital AF 1.2 at 50ml/hr (goal rate), Tab BID, FWF 100ml Q6H via GT Provides: 1600 kcal, 95gm protein and 1373 ml free water daily. Meets: 86% of estimated calorie needs and 99% of upper end of estimated protein needs. Follow Up High Risk: F/U in 2-3days
--- NOTE | 2020-01-29 12:31 | NUR ---
Dietitian Recommendations *Recommend Vital AF 1.2 at 50ml/hr (goal rate), Tab BID, FWF 100ml Q6H via GT Provides: 1600 kcal, 95gm protein and 1373 ml free water daily. Meets: 86% of estimated calorie needs and 99% of upper end of estimated protein needs. Please see Nutrition F/U note for details. LONG-TERM, RD
[2020-01-29 13:28] VITALS: BP_SYST 132
--- NOTE | 2020-01-29 14:41 | NUR ---
remains non-verbal, on mechanical vent, arousable by slightly opened eyes, then quickly closed eyes. PEG in place, by dr Westley Palacios, per orders, starts feeding with Jevity 1.2 at 30cc/hr, goal is 60. abundant secretions, thick, large amount, white colored sputum noted, layer of thrust noticeable. Mouth care quite often. DIFLUCAN ivpb given
[2020-01-29 16:00] VITALS: BP_SYST 122
[2020-01-29] MEDS: INSULIN GLARGINE 100 UNITS/ML 10 ML VIAL SUBCUT SCH (21:30)
[2020-01-29] MEDS: SENNOSIDES 8.6 MG TABLET GT SCH (21:30)
[2020-01-29] MEDS: CEFEPIME 0.5 GM in D5W 50 ML IV SCH (21:30)
[2020-01-30 07:00] VITALS: BP_SYST 120
[2020-01-30] MEDS: IPRATROPIUM BROM 0.5 MG/2.5 ML VIAL.NEB (ATROVENT) INH SCH ×3 (07:08→15:22)
--- NOTE | 2020-01-30 07:30 | NUR ---
Opening Note Report received from BRENNON RN. Patient in bed, opens eyes to painful stimuli. Non-verbal. Patient has trach and is on a ventilator, settings: FiO2 40%, PEEP 5, TV 500, RR 15. Patient tolerating settings at this time. Indwelling valdovinos in place. Patient has 18 g to left upper arm, receiving IV fluids at this time. PEG tube inplace, patient receiving 1.2 Jevity at 30 ml/hr. SCDs in place. Bed in low and locked position, side rails up x3, call light next to patient, bed alarm on.
--- NOTE | 2020-01-30 07:38 | NUR ---
Closing note: Endorsed care to dayshift RN. Patient is in bed, resting. No acute distress. Even, nonlabored breathing ventilator. TV 500. Fio2 60% PEEP 5. Drainage is frothy light red. IV site is patent and intact. Gtube is receiving tubefeeding as ordered. Conti is draining cloudy, yellow urine to gravity. All needs met. Bed is locked at lowest position. Side rails up. Bed alarm on. Call light is with patient. Contact, safety and fall precautions in place.
[2020-01-30 08:00] VITALS: BP_SYST 117
[2020-01-30] MEDS: LANSOPRAZOLE 30 MG CAPSULE.DR GT SCH (09:24)
[2020-01-30] MEDS: MULTIVITS,CA,MINERALS/IRON/FA 1 TABLET GT SCH (09:25)
[2020-01-30] MEDS: ATORVASTATIN 20 MG TABLET PO SCH (09:25)
[2020-01-30] MEDS: ASCORBIC ACID 500 MG TABLET GT SCH (09:25)
[2020-01-30] MEDS: MAGNESIUM OXIDE 400 MG TABLET GT SCH (09:25)
[2020-01-30] MEDS: ASPIRIN 81 MG TAB.CHEW PO SCH (09:26)
[2020-01-30] MEDS: CEFEPIME 0.5 GM in D5W 50 ML IV SCH (09:26)
[2020-01-30] MEDS: GLYCOPYRROLATE 1 MG TABLET GT SCH ×2 (09:26→16:13)
[2020-01-30] MEDS: CARVEDILOL 6.25 MG TABLET (COREG) PO SCH (09:26)
[2020-01-30] MEDS: levETIRAcetam 500 MG in NS 100 ML IV SCH (09:26)
[2020-01-30] MEDS: BALSAM PERU/CASTOR OIL 60 GM OINT...G. TP SCH (10:03)
--- NOTE | 2020-01-30 10:04 | NUR ---
Bowel Movement Patient had one bowel movement, formed and brown. Patient cleaned and chux changed.
[2020-01-30 10:55] LABS: BASOPHILS % (AUTO) 0.2 % (0.0-2.0); C-REACTIVE PROTEIN QUANT 3.3 mg/dL (0-0.5); CALCIUM 9.1 mg/dL (8.4-11.0); CREATININE 0.82 mg/dL (0.55-1.30); EOSINOPHILS # (AUTO) 0.1 K/uL (0.0-0.4); EOSINOPHILS % (AUTO) 0.9 % (0.0-4.0); HEMATOCRIT 30.4 % (36-48); HEMOGLOBIN 10.1 g/dL (12.0-16.0); LYMPHOCYTES # (AUTO) 1.8 K/uL (1.0-5.5); LYMPHOCYTES % (AUTO) 12.6 % (20.5-51.5); MEAN CORPUSCULAR HEMOGLOBIN 30 pg (27-31); MEAN CORPUSCULAR HGB CONC 33 % (32-36); MEAN CORPUSCULAR VOLUME 89 fL (79.0-98.0); MONOCYTES # (AUTO) 0.5 K/uL (0.0-1.0); MONOCYTES % (AUTO) 3.2 % (1.7-9.3); NEUTROPHILS # (AUTO) 11.6 K/uL (1.8-7.7); NEUTROPHILS % (AUTO) 83.1 % (40.0-70.0); PLATELET COUNT (AUTO) 192 K/uL (130-430); POTASSIUM 3.3 mmol/L (3.5-5.1); RED BLOOD CELL COUNT(AUTO) 3.43 MIL/uL (4.2-6.2); WHITE BLOOD COUNT (AUTO) 13.9 K/uL (4.8-10.8)
[2020-01-30] MEDS: FLUCONAZOLE 100 mg/ NS 50 ML IV SCH (12:00)
--- NOTE | 2020-01-30 12:00 | NUR ---
Discharge Planning Faxed patient's information to [facility], p [phone] f [phone], for return to subacute when cleared by ID. Addendum: 01/30/20 at 1322 by Luz Marina Alicia LCSW Patient accepted back to [facility], room 42 ([facility] room), as per Campos when patient is discharged. Addendum: 01/30/20 at 1605 by Luz Marina Alicia LCSW Patient discharged [facility], , with vent for 17:30. Time requested by Olivia Velazquez CM to contact patient's guardian. Nurse to Nurse for [facility] room 42 subacute [phone]. Packet placed in nurses' station.
[2020-01-30 12:10] LABS: ERYTHROCYTE SEDIMENTATION RATE 28 MM/HR (0-20)
[2020-01-30 12:53] VITALS: BP_SYST 118
[2020-01-30 13:20] VITALS: BP_SYST 119
--- NOTE | 2020-01-30 14:14 | NUR ---
PAGED DR MARY CHAN
--- NOTE | 2020-01-30 15:17 | NUR ---
MARY OEWNS SPOKE TO HENRRY
--- NOTE | 2020-01-30 15:30 | NUR ---
Discharge Patient discharged to [facility], room 42. Report given to Lily FLORES, with no further questions. [phone] 20g IV to RAC inserted for transport, saline locked. Report given to CCT RN with [facility] unit 303. Patient's discharge packet given to RN. Patient's peripheral IV flushed and patent prior to transport. Patient's indwelling valdovinos emptied. Patient's PEG tube flushed and clamped. Maximum assistance required to transfer patient from hospital [facility] to transport [facility].
--- NOTE | 2020-01-30 15:45 | NUR ---
Bowel Movement Patient had one large bowel movement with large, firm stool. Patient cleaned and changed into new gown.
[2020-01-30 15:48] VITALS: BP_SYST 117
[2020-01-30] MEDS ORDERED: LEVE500T53 GT (15:49)
[2020-01-30] MEDS ORDERED: COR6.25 PO (15:49)
[2020-01-30] MEDS ORDERED: LIP20 PO (15:49)
[2020-01-30] MEDS ORDERED: FLUC100P4 IV (15:49)
[2020-01-30] MEDS ORDERED: CEFE1FRO IV (15:49)
[2020-01-30] MEDS ORDERED: ASA81 PO (15:49)
--- NOTE | 2020-01-30 16:04 | NUR ---
DISCHARGE PLANNING Spoke with Dr Funez in [facility], he called & spoke to couple of consults then states pt ok for dc back to subacute today. Dr Funez put in dc order. Called & left msg with Sarkis Aponte Public Guardian electrical line worker, ph [phone], & to Nurse Conservator Krystal Winslow, ph [phone], that pt going back to [facility] today @ 530pm to rm 42.
[2020-01-30 18:05] VITALS: BP_SYST 126
== END 2020-01-30 17:35 | DRG 720 ==
LOC: SED 15:15 → SIC 17:06 → STU 01-26 05:05
PROVIDERS: ADMIT Preventive Medicine Preventive Medicine/Occupational Environmental Medicine; ATTEND Preventive Medicine Preventive Medicine/Occupational Environmental Medicine
PROC: 5A1955Z Respiratory Ventilation, Greater than 96 Consecutive Hours (ICD-10-PCS; principal; 2020-01-21)
PROC: 4A00X4Z Measurement of Central Nervous Electrical Activity, External Approach (ICD-10-PCS; 2020-01-24)
PROC: 0DH63UZ Insertion of Feeding Device into Stomach, Percutaneous Approach (ICD-10-PCS; 2020-01-29)
DX: A41.9 Sepsis, unspecified organism (principal); N39.0 Urinary tract infection, site not specified; R65.21 Severe sepsis with septic shock; J96.21 Acute and chronic respiratory failure with hypoxia; J69.0 Pneumonitis due to inhalation of food and vomit; C32.9 Malignant neoplasm of larynx, unspecified; J44.9 Chronic obstructive pulmonary disease, unspecified; R13.10 Dysphagia, unspecified; G93.1 Anoxic brain damage, not elsewhere classified; Z16.24 Resistance to multiple antibiotics; G40.909 Epilepsy, unspecified, not intractable, without status epilepticus; I46.9 Cardiac arrest, cause unspecified; N17.9 Acute kidney failure, unspecified; D64.9 Anemia, unspecified; E87.6 Hypokalemia; R79.89 Other specified abnormal findings of blood chemistry; B96.4 Proteus (mirabilis) (morganii) as the cause of diseases classified elsewhere; Z20.828 Contact with and (suspected) exposure to other viral communicable diseases; E11.65 Type 2 diabetes mellitus with hyperglycemia; E80.6 Other disorders of bilirubin metabolism; E43 Unspecified severe protein-calorie malnutrition; E78.5 Hyperlipidemia, unspecified; I12.9 Hypertensive chronic kidney disease with stage 1 through stage 4 chronic kidney disease, or unspecified chronic kidney disease; E11.22 Type 2 diabetes mellitus with diabetic chronic kidney disease; N18.9 Chronic kidney disease, unspecified; E83.52 Hypercalcemia; E87.2 Acidosis; Z88.5 Allergy status to narcotic agent; Z88.0 Allergy status to penicillin; Z79.899 Other long term (current) drug therapy; Z85.21 Personal history of malignant neoplasm of larynx; Z99.11 Dependence on respirator [ventilator] status; Z93.0 Tracheostomy status
CPT/HCPCS: 36415; 36600; 43246; 70450-TC; 71045; 76604; 80048; 80053; 81000-TC; 82803-TC; 82962; 83605; 84484; 85007; 85025; 85027; 85610-TC; 85651-TC; 85730-TC; 86140; 87040-TC; 87070-TC; 87081; 87086; 87186-TC; 87205-TC; 93005; 94002; 94003; 94640; 94760; 95816; 96365; 96366; 96367; 96368; 99291; G0378; J0692; J1450; J1815; J1953; J2060; J2185; J2250; J2704; J3010; J3370; J3480; J3490; J7030; J7050; J7060; U0003-CS